=== PATIENT | female | born 1965 | race Caucasian/White ===

== ENCOUNTER → 2017-10-27 | Outpatient (REF) | payer OTHER ==
[2017-10-27 13:26] LABS: BASO # 0.1 10^3/uL (0.0-0.2); BASO % 0.9 % (0.0-1.0); EOS # 0.1 10^3/uL (0.0-0.50); EOS % 0.5 % (0.0-3.0); HEMATOCRIT 40.4 % (36.0-47.0); HEMOGLOBIN 13.3 g/dl (12.0-15.5); IMMATURE GRANULOCYTE % 0.8 % (0-3.0); LYMPH # 2.2 10^3/uL (1.5-4.5); LYMPH % 22.9 % (24.0-44.0); MEAN CORPUSCULAR HEMOGLOBIN 31.4 pg (27.0-33.0); MEAN CORPUSCULAR HGB CONC 32.9 g/dl (32.0-36.5); MEAN CORPUSCULAR VOLUME 95.5 fl (80.0-96.0); MONO # 0.7 10^3/uL (0.0-0.8); MONO % 6.7 % (0.0-5.0); NEUTROPHILS # 6.7 10^3/uL (1.8-7.7); NEUTROPHILS % 68.2 % (36.0-66.0); PLATELET COUNT, AUTOMATED 280 10^3/uL (150-450); RED BLOOD COUNT 4.23 10^6/uL (4.00-5.40); RED CELL DISTRIBUTION WIDTH 13.2 % (11.5-14.5); WHITE BLOOD COUNT 9.8 10^3/uL (4.0-10.0)
[2017-10-27 13:59] LABS: ALBUMIN 4.1 GM/DL (3.2-5.2); ALBUMIN/GLOBULIN RATIO 1.11 (1.00-1.93); ALKALINE PHOSPHATASE 74 U/L (45-117); ALT/SGPT 30 U/L (12-78); ANION GAP 10 MEQ/L (8-16); AST/SGOT 13 U/L (7-37); BILIRUBIN,TOTAL 0.2 MG/DL (0.2-1.0); BLOOD UREA NITROGEN 12 MG/DL (7-18); CALCIUM LEVEL 9.6 MG/DL (8.5-10.1); CARBON DIOXIDE LEVEL 27 MEQ/L (21-32); CHLORIDE LEVEL 104 MEQ/L (98-107); CHOLESTEROL LEVEL 262 MG/DL (<200); CHOLESTEROL RISK RATIO 5.137 (<5); CREATININE FOR GFR 1.29 MG/DL (0.55-1.30); FREE T4 1.03 NG/DL (0.76-1.46); GLUCOSE, FASTING 111 MG/DL (70-100); HDL CHOLESTEROL 51 MG/DL (>40); LDL CHOLESTEROL 140.2 MG/DL (<100); NON-HDL-C 211 MG/DL; POTASSIUM SERUM 4.2 MEQ/L (3.5-5.1); SODIUM LEVEL 141 MEQ/L (136-145); TOTAL PROTEIN 7.8 GM/DL (6.4-8.2); TRIGLYCERIDES LEVEL 354 MG/DL (<150); VITAMIN B12 LEVEL 422 PG/ML (247-911)
[2017-10-27 14:59] LABS: ESTIMATED AVERAGE GLUCOSE 169 MG/DL (60-110); HEMOGLOBIN A1c 7.5 %
== END ==
LOC: M SFHCPLAZ 12:06
DX: E78.00 Pure hypercholesterolemia, unspecified (principal); I10 Essential (primary) hypertension; E03.9 Hypothyroidism, unspecified; G62.9 Polyneuropathy, unspecified; E11.9 Type 2 diabetes mellitus without complications

== ENCOUNTER 2017-12-27 21:17 | Emergency (ER) | payer OTHER | END 2017-12-27 23:40 | disposition home or self-care (01) | LOC: M ED 21:17 | DX: F41.8 Other specified anxiety disorders (principal); E11.9 Type 2 diabetes mellitus without complications; I10 Essential (primary) hypertension; K21.9 Gastro-esophageal reflux disease without esophagitis; F17.210 Nicotine dependence, cigarettes, uncomplicated | CPT/HCPCS: 99284 ==

== ENCOUNTER → 2018-05-04 | Outpatient (REF) | payer OTHER ==
[2018-05-04 19:04] LABS: BASO # 0.1 10^3/uL (0.0-0.2); BASO % 1.4 % (0.0-1.0); EOS # 0.3 10^3/uL (0.0-0.50); EOS % 3.3 % (0.0-3.0); HEMATOCRIT 39.8 % (36.0-47.0); HEMOGLOBIN 13.2 g/dl (12.0-15.5); LYMPH # 2.3 10^3/uL (1.5-4.5); LYMPH % 26.1 % (24.0-44.0); MEAN CORPUSCULAR HEMOGLOBIN 30.7 pg (27.0-33.0); MEAN CORPUSCULAR HGB CONC 33.2 g/dl (32.0-36.5); MEAN CORPUSCULAR VOLUME 92.6 fl (80.0-96.0); MONO # 0.4 10^3/uL (0.0-0.8); NEUTROPHILS # 5.6 10^3/uL (1.8-7.7); NEUTROPHILS % 63.4 % (36.0-66.0); PLATELET COUNT, AUTOMATED 352 10^3/uL (150-450); WHITE BLOOD COUNT 8.9 10^3/uL (4.0-10.0)
[2018-05-04 19:22] LABS: HEMOGLOBIN A1c 8.7 %
[2018-05-04 19:24] LABS: APPEARANCE, URINE CLEAR (CLEAR); BACTERIA, URINE AUTO NEGATIVE (NEGATIVE); BILIRUBIN, URINE AUTO NEGATIVE (NEGATIVE); BLOOD, URINE BLOOD 2+ (NEGATIVE); COLOR, URINE STRAW (YELLOW); GLUCOSE, URINE (UA) AUTO NEGATIVE (NEGATIVE); KETONE, URINE AUTO NEGATIVE (NEGATIVE); LEUKOCYTE ESTERASE, URINE AUTO 3+ (NEGATIVE); MUCUS, URINE SMALL (NEGATIVE); NITRITE, URINE AUTO NEGATIVE (NEGATIVE); PROTEIN, URINE AUTO NEGATIVE (NEGATIVE); RBC, URINE AUTO 6 /HPF (0-3); SPECIFIC GRAVITY URINE AUTO 1.004 (1.002-1.035); SQUAMOUS EPITHELIAL CELL UR AU 0 /HPF (0-6); UROBILINOGEN, URINE AUTO 0.2 mg/dL (0.0-2.0); WBC, URINE AUTO 70 /HPF (0-3)
[2018-05-04 19:26] LABS: MALB URINE SIEMENS 46.5 MG/L; MAU/CREAT RATIO 202.1 MCG/MG (0.0-30.0)
[2018-05-04 19:38] LABS: ALT/SGPT 73 U/L (12-78); BLOOD UREA NITROGEN 12 MG/DL (7-18); CALCIUM LEVEL 9.3 MG/DL (8.5-10.1); CARBON DIOXIDE LEVEL 28 MEQ/L (21-32); CHLORIDE LEVEL 102 MEQ/L (98-107); CREATININE FOR GFR 1.46 MG/DL (0.55-1.30); GLOMERULAR FILTRATION RATE 39.7 (>51); GLUCOSE, FASTING 103 MG/DL (70-100); POTASSIUM SERUM 4.1 MEQ/L (3.5-5.1); SODIUM LEVEL 138 MEQ/L (136-145)
[2018-05-04 19:39] LABS: ALBUMIN 4.3 GM/DL (3.2-5.2); BILIRUBIN,TOTAL 0.3 MG/DL (0.2-1.0); CHOLESTEROL LEVEL 345 MG/DL (<200); CHOLESTEROL RISK RATIO 5.073 (<5); FREE T4 0.18 NG/DL (0.76-1.46); HDL CHOLESTEROL 68 MG/DL (>40); LDL CHOLESTEROL 229 MG/DL (<100); NON-HDL-C 277 MG/DL; TRIGLYCERIDES LEVEL 240 MG/DL (<150)
[2018-05-06 12:06] LABS: HEPATITIS B SURFACE ANTIBODY NEGATIVE (POSITIVE)
[2018-05-06 12:17] LABS: HEPATITIS B SURFACE ANTIGEN NEGATIVE (NEGATIVE)
[2018-05-06 12:45] LABS: HEPATITIS C VIRUS ABY INDEX < 0.0 INDEX (<0.8)
== END ==
LOC: M SFHCPLAZ 15:00
PROVIDERS: ATTEND Physician Assistant Medical
DX: E78.00 Pure hypercholesterolemia, unspecified (principal); I10 Essential (primary) hypertension; E11.9 Type 2 diabetes mellitus without complications; E03.9 Hypothyroidism, unspecified; Z11.59 Encounter for screening for other viral diseases

== ENCOUNTER → 2018-06-10 | Outpatient (REF) | payer OTHER ==
[2018-06-10 17:51] LABS: ALBUMIN 4.8 GM/DL (3.2-5.2); BILIRUBIN,TOTAL 0.4 MG/DL (0.2-1.0); CALCIUM LEVEL 9.5 MG/DL (8.5-10.1); CHOLESTEROL RISK RATIO 3.641 (<5); CREATININE FOR GFR 1.36 MG/DL (0.55-1.30); FREE T4 1.31 NG/DL (0.76-1.46); GLOMERULAR FILTRATION RATE 43.1 (>51); POTASSIUM SERUM 4.6 MEQ/L (3.5-5.1); THYROID STIMULATING HORMONE 7.82 uIU/ML (0.358-3.740); TOTAL PROTEIN 8.7 GM/DL (6.4-8.2)
[2018-06-10 18:08] LABS: HEMOGLOBIN A1c 7.6 %
== END ==
LOC: M SFHCPLAZ 14:47
PROVIDERS: ATTEND Physician Assistant Medical
DX: R94.5 Abnormal results of liver function studies (principal); E03.9 Hypothyroidism, unspecified; E11.9 Type 2 diabetes mellitus without complications

== ENCOUNTER → 2018-06-20 | Outpatient (CLI) | payer OTHER ==
--- NOTE | 2018-06-21 13:30 | REP ---
Clinical: Elevated liver function tests. Technique: Real time sanders scale ultrasound examination using curved array transducer. Findings: Liver demonstrates diffuse increased echogenicity with decreased through transmission suggesting fatty infiltration. Areas of focal fatty sparing noted around the gallbladder fossa and portal vein. No focal hepatic lesion identified. The gallbladder is normal and without gallstones, wall thickening, or pericholecystic fluid. No biliary ductal dilatation is appreciated and the common bile duct measures 5.0 mm diameter. Visualized pancreas is unremarkable. Kidney measures 9.7 x 5.6 x 3.6 cm and demonstrates grade IV hydroureteronephrosis which can be followed to the mid ureter. The bladder is collapsed. Visualized portions of the aorta are normal. No ascites. Impression: 1. Hepatic steatosis without focal hepatic lesion identified. 2. Severe right hydroureteronephrosis. Electronically Signed by Gigi Gaviria MD 06/21/2018 01:21 P
== END ==
LOC: M RAD 09:19
PROVIDERS: ATTEND Physician Assistant Medical
DX: K76.0 Fatty (change of) liver, not elsewhere classified (principal); N13.30 Unspecified hydronephrosis

== ENCOUNTER → 2018-07-04 | Outpatient (REF) | payer OTHER ==
[2018-07-04 12:31] LABS: ALBUMIN 4.1 GM/DL (3.2-5.2); BILIRUBIN,TOTAL 0.3 MG/DL (0.2-1.0); CREATININE FOR GFR 1.27 MG/DL (0.55-1.30); GLOMERULAR FILTRATION RATE 46.7 (>51); POTASSIUM SERUM 4.8 MEQ/L (3.5-5.1); TOTAL PROTEIN 7.3 GM/DL (6.4-8.2)
== END ==
LOC: M SFHCPLAZ 09:42
PROVIDERS: ATTEND Physician Assistant Medical
DX: N13.9 Obstructive and reflux uropathy, unspecified (principal)

== ENCOUNTER → 2018-07-08 | Outpatient (REF) | payer OTHER ==
[2018-07-08 13:57] LABS: AMORPHOUS SEDIMENT SMALL (NEGATIVE); APPEARANCE, URINE HAZY (CLEAR); BACTERIA, URINE AUTO NEGATIVE (NEGATIVE); BILIRUBIN, URINE AUTO NEGATIVE (NEGATIVE); BLOOD, URINE BLOOD 2+ (NEGATIVE); COLOR, URINE STRAW (YELLOW); GLUCOSE, URINE (UA) AUTO NEGATIVE (NEGATIVE); KETONE, URINE AUTO NEGATIVE (NEGATIVE); LEUKOCYTE ESTERASE, URINE AUTO 3+ (NEGATIVE); MUCUS, URINE SMALL (NEGATIVE); NITRITE, URINE AUTO NEGATIVE (NEGATIVE); PROTEIN, URINE AUTO NEGATIVE (NEGATIVE); RBC, URINE AUTO 4 /HPF (0-3); SPECIFIC GRAVITY URINE AUTO 1.002 (1.002-1.035); SQUAMOUS EPITHELIAL CELL UR AU 1 /HPF (0-6); UROBILINOGEN, URINE AUTO 0.2 mg/dL (0.0-2.0); WBC, URINE AUTO 41 /HPF (0-3)
== END ==
LOC: M SMT 13:08
PROVIDERS: ATTEND Nurse Practitioner Family
DX: N13.30 Unspecified hydronephrosis (principal)

== ENCOUNTER → 2018-07-21 | Outpatient (CLI) | payer OTHER ==
[~2018-07-21] MED LIST: ISOVUE-370 76% 100ML VIAL (Q9967) As Ordered ONE
--- NOTE | 2018-07-22 03:49 | REP ---
Clinical: Hydroureternephrosis. Technique: Axial precontrast, contrast enhanced, and delayed images of the abdomen and pelvis using 100 ml Isovue 370 intravenous contrast material with coronal and sagittal re-formations as well as CT urogram. Comparison: None. Findings: The right kidney demonstrates chronic atrophy and presumed chronic hydroureteronephrosis secondary to a and 9 mm distal ureteral calculus (images [id number]). Associated asymmetric nephrogram along with the lack of contrast in the right collecting system suggests significantly decreased right renal function. The left kidney/ureter appears normal. Liver, spleen, pancreas, gallbladder, bilateral adrenal glands are normal in all phases of enhancement. The enteric system is without obstruction or acute inflammatory process. Normal terminal ileum and appendix identified in the right lower quadrant. 1 cm fat containing periumbilical hernia identified. Pelvis demonstrates essentially normal bladder and evidence of prior hysterectomy. No ascites. No free air. No adenopathy. Abdominal aorta without aneurysm or dissection. Impression: 1. Chronic-appearing obstructive uropathy involving the right kidney including atrophic appearance to the right kidney with marked hydroureteronephrosis secondary to a 9 mm distal ureteral calculus. Left kidney/ureter and bladder appear normal. Electronically Signed by Gigi Gaviria MD 07/22/2018 03:41 A
== END ==
LOC: M RAD 14:51
PROVIDERS: ATTEND Nurse Practitioner Family
DX: N13.30 Unspecified hydronephrosis (principal); N21.1 Calculus in urethra
CPT/HCPCS: 74178; Q9967

== ENCOUNTER → 2018-08-17 | Outpatient (REF) | payer OTHER ==
[~2018-08-17] MED LIST changes: +GABA-1171 PO; -ISOVUE-370 76% 100ML VIAL (Q9967) As Ordered ONE; +LEVO112T2 PO; +LISI10TA4 PO; +METF10004 PO; +TRAZ-252 PO; +VENL75CA47 PO; +VENTAER INH
[2018-08-17 16:01] LABS: APPEARANCE, URINE CLOUDY (CLEAR); BACTERIA, URINE AUTO 1+ (NEGATIVE); BILIRUBIN, URINE AUTO NEGATIVE (NEGATIVE); BLOOD, URINE BLOOD 3+ (NEGATIVE); COLOR, URINE YELLOW (YELLOW); GLUCOSE, URINE (UA) AUTO NEGATIVE (NEGATIVE); KETONE, URINE AUTO NEGATIVE (NEGATIVE); LEUKOCYTE ESTERASE, URINE AUTO 3+ (NEGATIVE); MUCUS, URINE SMALL (NEGATIVE); NITRITE, URINE AUTO NEGATIVE (NEGATIVE); PROTEIN, URINE AUTO 1+ mg/dL (NEGATIVE); RBC, URINE AUTO 28 /HPF (0-3); SPECIFIC GRAVITY URINE AUTO 1.013 (1.002-1.035); SQUAMOUS EPITHELIAL CELL UR AU 1 /HPF (0-6); UROBILINOGEN, URINE AUTO 0.2 mg/dL (0.0-2.0); WBC, URINE AUTO TNTC /HPF (0-3)
[2018-08-17 16:04] LABS: BASO # 0.1 10^3/uL (0.0-0.2); BASO % 0.7 % (0.0-1.0); EOS % 0.4 % (0.0-3.0); HEMATOCRIT 41.6 % (36.0-47.0); HEMOGLOBIN 13.8 g/dl (12.0-15.5); LYMPH # 2.3 10^3/uL (1.5-4.5); LYMPH % 23.5 % (24.0-44.0); MEAN CORPUSCULAR HEMOGLOBIN 30.7 pg (27.0-33.0); MEAN CORPUSCULAR HGB CONC 33.2 g/dl (32.0-36.5); MEAN CORPUSCULAR VOLUME 92.7 fl (80.0-96.0); MONO # 0.6 10^3/uL (0.0-0.8); MONO % 6.6 % (0.0-5.0); NEUTROPHILS # 6.6 10^3/uL (1.8-7.7); NEUTROPHILS % 68.2 % (36.0-66.0); PLATELET COUNT, AUTOMATED 328 10^3/uL (150-450); RED BLOOD COUNT 4.49 10^6/uL (4.00-5.40); WHITE BLOOD COUNT 9.6 10^3/uL (4.0-10.0)
[2018-08-17 16:09] LABS: INR 0.89; PROTHROMBIN TIME 12.1 SECONDS (12.1-14.4)
[2018-08-17 16:10] LABS: PARTIAL THROMBOPLASTIN TIME 28.1 SECONDS (25.4-37.6)
[2018-08-17 16:34] LABS: ALBUMIN 4.3 GM/DL (3.2-5.2); ALT/SGPT 23 U/L (12-78); BILIRUBIN,TOTAL 0.4 MG/DL (0.2-1.0); BLOOD UREA NITROGEN 20 MG/DL (7-18); CALCIUM LEVEL 10.1 MG/DL (8.5-10.1); CARBON DIOXIDE LEVEL 23 MEQ/L (21-32); CHLORIDE LEVEL 103 MEQ/L (98-107); CPK CREATINE PHOSPHOKINASE 205 U/L (26-192); CREATININE FOR GFR 1.11 MG/DL (0.55-1.30); FREE T4 1.29 NG/DL (0.76-1.46); GLOMERULAR FILTRATION RATE 54.5 (>51); GLUCOSE, FASTING 109 MG/DL (70-100); MB/CK RELATIVE INDEX 1.51 (< OR =4); NT-PRO BNP 40 PG/ML (<125); POTASSIUM SERUM 4.4 MEQ/L (3.5-5.1); SODIUM LEVEL 137 MEQ/L (136-145); THYROID STIMULATING HORMONE 0.275 uIU/ML (0.358-3.740); TOTAL PROTEIN 8.2 GM/DL (6.4-8.2); TROPONIN I < 0.02 NG/ML (< 0.10)
[2018-08-17 16:35] LABS: TOTAL 25(OH) VITAMIN D 20.3 NG/ML (30.0-100.0)
== END ==
LOC: M SFHCPLAZ 13:58
PROVIDERS: ATTEND Physician Assistant Medical
DX: R07.9 Chest pain, unspecified (principal); I10 Essential (primary) hypertension; E03.9 Hypothyroidism, unspecified

== ENCOUNTER 2018-09-06 15:16 | Observation (INO) | payer OTHER ==
[~2018-09-06] VITALS: Ht 152.4 cm; Wt 84.6 kg
[2018-09-06] MEDS ORDERED: HYDR-643 (15:37)
--- NOTE | 2018-09-06 16:44 | REP ---
Clinical: Chest pain and tightness with shortness of breath . Comparison: 02/10/2006 . Technique: PA and lateral. Findings: The mediastinum and cardiac silhouette are normal. The lung mix are clear and without acute consolidation, effusion, or pneumothorax. The skeletal structures are intact and normal. Impression: 1. No acute cardiopulmonary process. Electronically Signed by Gigi Gaviria MD 09/06/2018 04:35 P
[2018-09-06] MEDS: NS 1,000 ML IV SCH ×2 (17:00→23:17)
[2018-09-06] MEDS ORDERED: IPRATROPIUM 0.5MG/ALBUTEROL 2.5MG INH SOL UD 3ML (DUONEB)(J7620) NEB ONE (17:15)
[2018-09-06 17:26] LABS: BASO # 0.1 10^3/uL (0.0-0.2); BASO % 0.7 % (0.0-1.0); EOS # 0.1 10^3/uL (0.0-0.50); EOS % 1.6 % (0.0-3.0); HEMOGLOBIN 12.5 g/dl (12.0-15.5); LYMPH # 1.4 10^3/uL (1.5-4.5); LYMPH % 16.6 % (24.0-44.0); MEAN CORPUSCULAR HEMOGLOBIN 29.8 pg (27.0-33.0); MEAN CORPUSCULAR HGB CONC 32.9 g/dl (32.0-36.5); MEAN CORPUSCULAR VOLUME 90.5 fl (80.0-96.0); MONO # 0.5 10^3/uL (0.0-0.8); MONO % 5.9 % (0.0-5.0); NEUTROPHILS # 6.5 10^3/uL (1.8-7.7); NEUTROPHILS % 74.6 % (36.0-66.0); PLATELET COUNT, AUTOMATED 301 10^3/uL (150-450); WHITE BLOOD COUNT 8.7 10^3/uL (4.0-10.0)
[2018-09-06 17:33] LABS: ALBUMIN 3.8 GM/DL (3.2-5.2); ALT/SGPT 25 U/L (12-78); BILIRUBIN,DIRECT < 0.1 MG/DL (0.0-0.2); BILIRUBIN,TOTAL 0.2 MG/DL (0.2-1.0); BLOOD UREA NITROGEN 21 MG/DL (7-18); CALCIUM LEVEL 9.7 MG/DL (8.5-10.1); CARBON DIOXIDE LEVEL 23 MEQ/L (21-32); CHLORIDE LEVEL 110 MEQ/L (98-107); CPK CREATINE PHOSPHOKINASE 210 U/L (26-192); FREE T4 1.35 NG/DL (0.76-1.46); GLOMERULAR FILTRATION RATE 55.1 (>51); GLUCOSE, FASTING 131 MG/DL (70-100); LIPASE 654 U/L (73-393); MB/CK RELATIVE INDEX 1.43 (< OR =4); POTASSIUM SERUM 4.5 MEQ/L (3.5-5.1); SODIUM LEVEL 141 MEQ/L (136-145); THYROID STIMULATING HORMONE 0.159 uIU/ML (0.358-3.740); TOTAL PROTEIN 7.5 GM/DL (6.4-8.2); TROPONIN I < 0.02 NG/ML (< 0.10)
--- NOTE | 2018-09-06 20:12 | REP ---
Clinical: Flank pain. Elevated lipase levels. Technique: Axial noncontrast images from the lung bases to the pubic symphysis with coronal and sagittal re-formations. Comparison: 07/21/2018. Findings: Chronic moderate obstructive uropathy or involving the right kidney and ureter secondary to a 9 mm calculus in the distal right ureter (images [id number]) remains essentially unchanged. The right kidney demonstrates significant cortical thinning and mild perinephric stranding. Left kidney/ureter appears normal. No further intrarenal or obstructing ureteral calculi noted. Bladder is unremarkable. Liver, spleen, pancreas, gallbladder, and bilateral adrenal glands are normal for noncontrast evaluation. Enteric system is without obstruction or acute inflammatory process. Normal terminal ileum and appendix identified in the right lower quadrant. Scattered colonic and sigmoid diverticula noted without acute diverticulitis. Pelvis demonstrates normal bladder and age-appropriate uterus/adnexa. No pelvic fluid or ascites. No free air. No adenopathy. Small fat containing periumbilical hernia. Musculoskeletal structures intact. Lung bases are clear. Impression: 1. Chronic moderate right-sided obstructive uropathy with a 9 mm calculus again identified in the distal right ureter and significant cortical thinning to the right kidney. Left kidney/ureter appear normal and no further nephroureterolithiasis noted. 2. Scattered colonic diverticula without acute diverticulitis. 3. Small fat containing periumbilical hernia. Electronically Signed by Gigi Gaviria MD 09/06/2018 08:03 P
[2018-09-06] MEDS ORDERED: LevoFLOXacin IV 750 MG in APPROPRIATE DILUENT 1 EA IV ONE (23:00)
[2018-09-06] MEDS ORDERED: NS 1,000 ML IV SCH (23:38)
[2018-09-06] MEDS ORDERED: CVS55SPR (23:42)
[2018-09-06] MEDS ORDERED: SYNT100T PO (23:42)
[2018-09-06] MEDS ORDERED: HYDR-643 PO (23:42)
[2018-09-07] VITALS (10 sets, daily range): BP systolic 102–156; BP diastolic 59–85
[2018-09-07] MEDS ORDERED: ALBUTEROL 90 MCG/ACT 8GM HFA INHALER INH PRN (00:30)
[2018-09-07] MEDS ORDERED: hydrOXYzine 10 MG TAB PO PRN (00:30)
[2018-09-07] MEDS ORDERED: DEXTROSE 50% 50 ML SYRINGE IV PRN (00:30)
[2018-09-07] MEDS ORDERED: GLUCOSE 4 GM CHEW TABLET PO PRN (00:30)
[2018-09-07] MEDS ORDERED: GLUCAGON FOR INJ 1 MG VIAL (J1610) SC PRN (00:30)
--- NOTE | 2018-09-07 00:34 | HPEPDOC ---
[facility] Medical History & Physical Date of Admission Sep 06, 2018 Date of Service: Sep 06, 2018 History and Physical PCP: Katia Keating CHIEF COMPLAINT: My kidneys hurt HISTORY OF PRESENT ILLNESS: Patient is a 53-year-old female who follows with Dr. Urena of urology and has a non-obstructing right ureteral stone. She has been undergoing outpatient evaluation and scheduling to have it treated. She tells me that over the last several days she has had progressively worsening right flank pain associated with chills and sweats at home. She also complains of weakness and some cough. She tells me that her kidneys hurt tenderness in the right side more than the left. She denies any blood in her urine she has not measured her temperature at home.. Otherwise patient denies weight loss, hair loss, headache, visual changes, chest pain, shortness of breath, cough, nausea, vomiting, diarrhea, muscle aches, worsening arthritis, change in mood PAST MEDICAL HISTORY: 1. Degenerative disc disease. 2. Hypertension. 3. Hypothyroidism 4 type 2 diabetes 5 gastroesophageal reflux disease 6. Mood disorder with depression and PTSD 7 CVA 8 tobacco abuse 9 dyslipidemia 10 chronic kidney disease 11 umbilical hernia 12 nephrolithiasis. HOME MEDICATIONS: Please see below. ALLERGIES: Please see below PAST SURGICAL HISTORY: 1. Right arm metal plate implant. 2. .. SOCIAL HISTORY: Lives with: Alone, Employment: Disabled, Tobacco use: Active smoker approximate 40 pack years. ETOH: Denies last drink one month ago, Illic it drug use: Denies, Tattoos done unprofessionally: Denies, CODE STATUS: Full code FAMILY HISTORY:Reviewed and noncontributory REVIEW OF SYSTEMS: 10 systems reviewed and negative other than HPI PHYSICAL EXAMINATION: VITAL SIGNS: Temperature 97.7, pulse 53, respiratory rate 16, blood pressure 142/66, pulse oximetry 98 % on room air. GENERAL: Pleasant strange affect middle-aged obese female sitting in a stretcher does not appear to be in any acute distress sitting up in bed awake alert oriented speaking in complete sentences HEENT: Moist mucous membranes no elevation and CVP, hirsutism CARDIOVASCULAR: S1 S2 regular no additional heart sounds appreciated. RESPIRATORY: Clear to auscultation bilaterally. ABDOMINAL: Bowel sounds present abdomen soft and nontender, there is some right- sided CVA tenderness EXTREMITIES: No clubbing cyanosis or edema NEUROLOGICAL: Spontaneously moves all 4 extremities cranial 2 through 12 grossly intact no gross focal deficits appreciated PSYCHOLOGICAL: Rather strange and flat affect LABORATORY DATA: See below. MICROBIOLOGY: Please see below. IMAGING: Chest x-ray:1. No acute cardiopulmonary process. CT abdomen pelvis:1. Chronic moderate right-sided obstructive uropathy with a 9 mm calculus again identified in the distal right ureter and significant cortical thinning to the right kidney. Left kidney/ureter appear normal and no further nephroureterolithiasis noted. 2. Scattered colonic diverticula without acute diverticulitis. 3. Small fat containing periumbilical hernia. ASSESSMENT & PLAN: This is a 53-year-old female with obstructing right ureteral stone. PROBLEMS: 1. Obstructive uropathy with 9 mm nephrolithiasis on the right: Patient does complain of flank pain subjective fevers. She certainly could have pyelonephr itis although she does not have significant leukocytosis and fever documented here or qualify any acute sofa score. A provider reportedly spoke to Dr. Urena who suggested possible double-J stent placement in the OR as an add-on case 09/07/2018. As such I have admitted the patient to the [facility] kept her nothing by mouth and continued empiric antibiotics started in the emergency room. There is no cultures to guide therapy. I will check blood cultures and provided with gentle IV fluids. Given that she did present with complaints of a cough with some phlegm I will check respiratory PCR panel however my suspicion for preparation respiratory tract infection is much lower 2. Elevated lipase: Likely does not provide a history suggestive of pancreatitis no nausea or vomiting although her flank pain is on the right and could be an atypical presentation, regardless she is nothing by mouth for possible procedure tomorrow she is not requiring any sick pain medication nor does she have CT evidence of suggested either 3. Hypothyroidism: Continue with her Synthroid consider rechecking after her acute medical illness has resolved her TSH is mildly depressed and may benefit from a lower dose move forward 4.Diabetes mellitus: We'll place her on sliding scale and every 6 hour fingersticks. Hold home metformin 5. Tobacco abuse: Cessation counseling provided continue with albuterol as needed 6. Mood disorder: Continue with hydroxyzine and venlafaxine 7. Chronic pain: Continue with gabapentin 8. Hypertension: Hold lisinopril and monitor for now. Procedurally DVT PROPHYLAXIS: Heparin DISPOSITION: [facility] floor to the [facility] Vital Signs Vital Signs Date Time Temp Pulse Resp B/P (MAP) Pulse Ox O2 Delivery O2 Flow Rate FiO2 09/06/18 22:31 53 16 98 Room Air 09/06/18 20:06 142/66 (91) 09/06/18 17:00 97.7 Laboratory Data Labs 24H Laboratory Tests 2 09/06/18 16:42: Immature Granulocyte % (Auto) 0.6, White Blood Count 8.7, Red Blood Count 4.20, Hemoglobin 12.5, Hematocrit 38.0, Mean Corpuscular Volume 90.5, Mean Corpuscular Hemoglobin 29.8, Mean Corpuscular Hemoglobin Concent 32.9, Red Cell Distribution Width 13.5, Platelet Count 301, Neutrophils (%) (Auto) 74.6H, Lymphocytes (%) (Auto) 16.6L, Monocytes (%) (Auto) 5.9H, Eosinophils (%) (Auto) 1.6, Basophils (%) (Auto) 0.7, Neutrophils # (Auto) 6.5, Lymphocytes # (Auto) 1.4L, Monocytes # (Auto) 0.5, Eosinophils # (Auto) 0.1, Basophils # (Auto) 0.1, Nucleated Red Blood Cells % (auto) 0.0, Urine Color YELLOW, Urine Appearance CLOUDYH, Urine pH 5.0, Urine Specific [place] 1.015, Urine Protein NEGATIVE, Urine Glucose (UA) NEGATIVE, Urine Ketones NEGATIVE, Urine Blood 3+H, Urine Nitrite NEGATIVE, Urine Bilirubin NEGATIVE, Urine Urobilinogen 0.2, Urine Leukocyte Esterase 3+H, Urine WBC (Auto) 137H, Urine RBC (Auto) 16H, Urine Hyaline Casts (Auto) 0, Urine Bacteria (Auto) 2+H, Urine Squamous Epithelial Cells 1, Urine Mucus (Auto) SMALL, Urine Sperm (Auto) , Anion Gap 8, Glomerular Filtration Rate 55.1, Calcium Level 9.7, Aspartate Amino Transf (AST/SGOT) 19, Alanine Aminotransferase (ALT/SGPT) 25, Alkaline Phosphatase 67, Total Bilirubin 0.2, Direct Bilirubin < 0.1, Total Creatine Kinase 210H, Creatine Kinase MB 3.0, Crea isreal Kinase MB Relative Index 1.43, Troponin I < 0.02, Total Protein 7.5, Albumin 3.8, Albumin/Globulin Ratio 1.03, Lipase 654H, Thyroid Stimulating Hormone (TSH) 0.159L, Free Thyroxine 1.35 CBC/BMP Laboratory Tests 09/06/18 16:42 Red Blood Count 4.20, Mean Corpuscular Volume 90.5, Mean Corpuscular Hemoglobin 29.8, Mean Corpuscular Hemoglobin Concent 32.9, Red Cell Distribution Width 13.5, Neutrophils (%) (Auto) 74.6 H, Lymphocytes (%) (Auto) 16.6 L, Monocytes (%) (Auto) 5.9 H, Eosinophils (%) (Auto) 1.6, Basophils (%) (Auto) 0.7, Neutrophils # (Auto) 6.5, Lymphocytes # (Auto) 1.4 L, Monocytes # (Auto) 0.5, Eosinophils # (Auto) 0.1, Basophils # (Auto) 0.1 Microbiology Microbiology 09/06/18 Urine Culture, Received Pending Home Medications Scheduled Gabapentin (Gabapentin) 100 Mg Capsule, 200 MG PO TID Levothyroxine Sodium (Synthroid) 100 Mcg Tablet, 100 MCG PO DAILY Lisinopril (Lisinopril) 10 Mg Tablet, 10 MG PO DAILY Metformin HCl (Metformin HCl) 1,000 Mg Tablet, 1,000 MG PO DAILY Triamcinolone Acetonide (Nasal Allergy) 16.9 Ml [place], 1 SPRAY NA DAILY Venlafaxine HCl (Venlafaxine HCl ER) 75 Mg Cap.er.24h, 75 MG PO BID Scheduled PRN Albuterol Sulfate (Ventolin Hfa) 18 Gm Hfa.aer.ad, 2 PUFFS INH QID PRN for SHORTNESS OF BREATH Hydroxyzine HCl (Hydroxyzine HCl) 10 Mg Tablet, 10 MG PO TID PRN for ANXIETY Allergies Coded Allergies: Penicillins (Verified Allergy, Intermediate, RASH, 09/06/18) paroxetine (Verified Allergy, Intermediate, rASH, 09/06/18) A-FIB/CHADSVASC A-FIB History Current/History of A-Fib/PAF?: KEARA Erickson MD Sep 07, 2018 00:34
[2018-09-07] MEDS: VENLAFAXINE **XR** 75MG CAPSULE PO SCH ×3 (01:33→21:48)
[2018-09-07] MEDS: NS 1,000 ML IV SCH ×2 (02:19→14:03)
[2018-09-07] MEDS: HEPARIN SOD (PORCINE) 5000 UNITS/ML VIAL SC SCH ×2 (05:46→18:29)
[2018-09-07] MEDS: LEVOTHYROXINE 100MCG TABLET (0.1MG) PO SCH (05:46)
[2018-09-07] MEDS: HumaLOG INSULIN (NovoLOG) PER UNIT SC SCH ×4 (05:48→18:30)
--- NOTE | 2018-09-07 07:52 | SMCUROLCON ---
Urology Consultation General Date of Consultation 09/07/18 Reason For Consultation This patient is seen for Pyelonephritis, Situational Anxiety. History of Present Illness This is a 53 y/o F w/ PMH significant for DM2, HTN, HL, CVD, hypothyroidism, and nephrolithiasis, who presented to the ER yesterday evening w/ complaints of fevers, chills, and weakness. She notes that she has had a cough for the past few days and this along, w/ her presenting symptoms worsened yesterday. She also has a known 9mm obstructing distal right ureteral stone in and my office has been trying to get her cleared for ureteroscopy w/ laser lithotripsy for over a month now. She is still pending cardiac clearance. She notes having on and off right flank pain but does not feel this is any worse than it has been previously. She denies dysuria. A noncontrast CT A/P obtained in the ER was showed no change in location of the right ureteral stone and still moderate right hydroureteronephrosis w/ thinning of the renal parenchyma. Her UA is concerning for possible infection w/ 137 WBCs/hpf. Past Medical History Medical History see HPI Surgical Hstory right arm surgery, C section Medications Current Medications Current Medications Albuterol Sulfate (Proventil, Ventolin Hfa) 2 puff QID PRN INH SHORTNESS OF BREATH; Start 09/07/18 at 00:30 Dextrose (Dextrose 50%) 25 ml ASDIRECTED PRN IV SEE LABEL COMMENTS; Start 09/07/18 at 00:30 Gabapentin (Neurontin) 200 mg TID PO ; Start 09/07/18 at 09:00 Glucagon (Glucagon) 1 mg ASDIRECTED PRN SC SEE LABEL COMMENTS; Start 09/07/18 at 00:30 Glucose (Glucose) 16 GM ASDIRECTED PRN PO SEE LABEL COMMENTS; Start 09/07/18 at 00:30 Heparin Sodium (Porcine) (Heparin) 5,000 units Q12H SC Last administered on 09/07/18at 05:46; Start 09/07/18 at 06:00 Home Med (Med Rec Complete!) ASDIRECTED XX ; Start 09/06/18 at 23:45; Stop 09/06/18 at 23:45; Status DC Hydroxyzine HCl (Atarax) 10 mg TID PRN PO ANXIETY; Start 09/07/18 at 00:30 Insulin Human Lispro (HumaLOG INSULIN) See Protocol Table Q6H SC ; Start 09/07/18 at 00:00 Levofloxacin 500 mg/IV Miscellaneous Supplies 100 ml @ 100 mls/hr Q48H IV ; Start 09/08/18 at 21:00 Levothyroxine Sodium (Synthroid) 100 mcg DAILY@0600 PO Last administered on 09/07/18at 05:46; Start 09/07/18 at 06:00 Sodium Chloride 1,000 ml @ 75 mls/hr [id number] IV ; Start 09/06/18 at 23:38; Stop 09/07/18 at 00:42; Status DC Sodium Chloride 1,000 ml @ 75 mls/hr [id number] IV Last administered on 09/07/18at 02:19; Start 09/07/18 at 00:30 Sodium Chloride 1,000 ml @ 150 mls/hr Q6H40M IV Last administered on 09/06/18at 17:00; Start 09/06/18 at 16:37; Stop 09/07/18 at 02:55; Status DC Venlafaxine HCl (Effexor Xr) 75 mg BID PO ; Start 09/06/18 at 21:00 Allergies Allergies: Coded Allergies: Penicillins (Verified Allergy, Intermediate, RASH, 09/06/18) paroxetine (Verified Allergy, Intermediate, rASH, 09/06/18) Review of Systems General: Reports: Chills, Fatigue Constitutional: Reports: Fever, Chills, Sweats Pulmonary: Reports: Cough Cardiovascular: Denies Chest Pain, Denies Palpitations Gastrointestinal: Denies: Nausea, Vomiting, Abdominal Pain Genitourinary: Denies: Dysuria, Frequency, Hematuria Musculoskeletal: Reports: Back Pain (right flank pain) Psych: Reports: Mood Normal Physical Examination General Exam: Alert, No Acute Distress Chest Exam: Normal air movement Heart Exam: Rate Normal, Regular Rhythm Abdomen Exam: Soft; No: Tenderness Skin Exam: Nl turgor and temperature Neuro Exam: Normal Speech Psych Exam: Mental status NL, Mood NL Vital Signs/I&O Vital Signs Date Time Temp Pulse Resp B/P (MAP) Pulse Ox O2 Delivery O2 Flow Rate FiO2 09/07/18 06:00 97.0 59 18 123/59 (80) 97 09/07/18 01:55 Room Air I&O- Last 24 Hours up to 6 AM0 09/07/18 06:00 Intake Total 1120 ml Output Total 550 ml Balance 570 ml Laboratory Data 24H Labs Laboratory Tests 2 09/06/18 16:24: 09/06/18 16:42: Immature Granulocyte % (Auto) 0.6, White Blood Count 8.7, Red Blood Count 4.20, Hemoglobin 12.5, Hematocrit 38.0, Mean Corpuscular Volume 90.5, Mean Corpuscular Hemoglobin 29.8, Mean Corpuscular Hemoglobin Concent 32.9, Red Cell Distribution Width 13.5, Platelet Count 301, Neutrophils (%) (Auto) 74.6H, Lymphocytes (%) (Auto) 16.6L, Monocytes (%) (Auto) 5.9H, Eosinophils (%) (Auto) 1.6, Basophils (%) (Auto) 0.7, Neutrophils # (Auto) 6.5, Lymphocytes # (Auto) 1.4L, Monocytes # (Auto) 0.5, Eosinophils # (Auto) 0.1, Basophils # (Auto) 0.1, Nucleated Red Blood Cells % (auto) 0.0, Urine Color YELLOW, Urine Appearance CLOUDYH, Urine pH 5.0, Urine Specific [place] 1.015, Urine Protein NEGATIVE, Urine Glucose (UA) NEGATIVE, Urine Ketones NEGATIVE, Urine Blood 3+H, Urine Nitrite NEGATIVE, Urine Bilirubin NEGATIVE, Urine Urobilinogen 0.2, Urine Leukocyte Esterase 3+H, Urine WBC (Auto) 137H, Urine RBC (Auto) 16H, Urine Hyaline Casts (Auto) 0, Urine Bacteria (Auto) 2+H, Urine Squamous Epithelial Cells 1, Urine Mucus (Auto) SMALL, Urine Sperm (Auto) , Anion Gap 8, Glomerular Filtration Rate 55.1, Calcium Level 9.7, Aspartate Amino Transf (AST/SGOT) 19, Alanine Aminotran sferase (ALT/SGPT) 25, Alkaline Phosphatase 67, Total Bilirubin 0.2, Direct Bilirubin < 0.1, Total Creatine Kinase 210H, Creatine Kinase MB 3.0, Creatine Kinase MB Relative Index 1.43, Troponin I < 0.02, Total Protein 7.5, Albumin 3.8, Albumin/Globulin Ratio 1.03, Lipase 654H, Thyroid Stimulating Hormone (TSH) 0.159L, Free Thyroxine 1.35 09/07/18 02:17: Bedside Glucose (Misc Panel) 104 09/07/18 05:39: Bedside Glucose (Misc Panel) 95 CBC/BMP Laboratory Tests 09/06/18 16:42 Red Blood Count 4.20, Mean Corpuscular Volume 90.5, Mean Corpuscular Hemoglobin 29.8, Mean Corpuscular Hemoglobin Concent 32.9, Red Cell Distribution Width 13.5, Neutrophils (%) (Auto) 74.6 H, Lymphocytes (%) (Auto) 16.6 L, Monocytes (%) (Auto) 5.9 H, Eosinophils (%) (Auto) 1.6, Basophils (%) (Auto) 0.7, Neutrophils # (Auto) 6.5, Lymphocytes # (Auto) 1.4 L, Monocytes # (Auto) 0.5, Eosinophils # (Auto) 0.1, Basophils # (Auto) 0.1 Microbiology Microbiology 09/07/18 Blood Culture, Received Pending 09/07/18 Blood Culture, Received Pending 09/07/18 Respiratory Virus Panel (PCR) (DB) - Final, Complete Human Rhinovirus/Enterovirus 09/06/18 Urine Culture, Received Pending Assessment This is a 53 y/o F admitted w/ fevers, chills, and weakness, likely 2/2 r espiratory tract infection. She also has a known 9mm obstructing distal right ureteral stone and a large number of WBCs seen on UA raising concern for UTI. Given this, I recommended that we take her to the OR today for cystoscopy and right ureteral stent placement. Ureteroscopic removal of the stone would need to be done at a later date once we confirm a negative urine culture and she has completed her cardiac clearance. After a discussion of the risks and benefits of the procedure, informed consent was signed. Plan - informed consent signed for cystoscopy, right ureteral stent placement - empiric antibiotics per primary team - NPO until surgery MILADY LOPEZ MD Sep 07, 2018 07:52
[2018-09-07] MEDS ORDERED: PROPOFOL 200 MG/20 ML VIAL As Ordered ONE ×2 (09:41→12:00)
[2018-09-07] MEDS ORDERED: ONDANSETRON 4MG/2ML VIAL (J2405) As Ordered ONE (09:42)
[2018-09-07] MEDS ORDERED: dexameTHASONE 4 MG/ML 1ML VIAL (J1100) As Ordered ONE (09:42)
[2018-09-07] MEDS ORDERED: LIDOCAINE 2% INJ 100 MG/5 ML SDV (FOR ANES.) As Ordered ONE (09:42)
[2018-09-07] MEDS ORDERED: fentaNYL 100 MCG/2 ML INJECTION (J3010) As Ordered ONE (09:43)
[2018-09-07] MEDS ORDERED: MIDAZOLAM INJ 2 MG/2 ML VIAL (J2250) As Ordered ONE (09:43)
[2018-09-07] MEDS ORDERED: CONRAY-60 60% 50ML VIAL (Q9961) As Ordered ONE (11:22)
[2018-09-07] MEDS ORDERED: IPRATROPIUM 0.5MG/ALBUTEROL 2.5MG INH SOL UD 3ML (DUONEB)(J7620) As Ordered ONE (11:29)
[2018-09-07] MEDS ORDERED: IPRATROPIUM 0.5MG/ALBUTEROL 2.5MG INH SOL UD 3ML (DUONEB)(J7620) INH ONE (11:45)
[2018-09-07] MEDS ORDERED: LIDOCAINE 2% JELLY 6 ML SYRINGE As Ordered ONE (11:58)
[2018-09-07] MEDS ORDERED: KETAMINE HCL 200 MG/20 ML VIAL As Ordered ONE (12:00)
[2018-09-07] MEDS ORDERED: LIDOCAINE 2% 5ML JELLY UROJET As Ordered ONE (12:07)
--- NOTE | 2018-09-07 12:46 | REP ---
Antegrade pyelogram: A series of three a drop of fluoroscopic views is performed during right ureteral stent placement: The final film demonstrates the proximal and distal pigtails are in satisfactory positions. Fluoroscopic exposure time is 27 seconds. Fluoroscopic images are performed last image hold technology and require no additional radiation. Electronically Signed by Negrito Ogden MD 09/07/2018 12:38 P
[2018-09-07] MEDS ORDERED: oxyCODONE 5MG TAB As Ordered ONE (13:03)
[2018-09-07] MEDS ORDERED: fentaNYL 100 MCG/2 ML INJECTION (J3010) IV PRN (13:15)
[2018-09-07] MEDS ORDERED: METOCLOPRAMIDE INJ 10MG/2ML VIAL (J2765) IV PRN (13:15)
[2018-09-07] MEDS ORDERED: LR 1,000 ML IV SCH (13:15)
[2018-09-07] MEDS ORDERED: oxyCODONE 5MG TAB PO PRN (13:15)
[2018-09-07] MEDS ORDERED: PROMETHAZINE INJ 25 MG/ML VIAL (J2550) IV PRN (13:15)
--- NOTE | 2018-09-07 13:30 | RO ---
DATE OF PROCEDURE: 09/07/2018 PREPROCEDURE DIAGNOSIS: Obstructing right ureteral stone. POSTPROCEDURE DIAGNOSIS: Obstructing right ureteral stone. PROCEDURE: Cystoscopy, right retrograde pyelogram with intraoperative interpretation of images, right ureteral stent placement. SURGEON: Isak Urena MD FOOD [employer]ING RAMPMAN: None. ANESTHESIA: Monitored anesthesia care (MAC). OPERATIVE INDICATION: This is a 53-year-old female with an obstructing 9 mm distal right ureteral stone as well as concern for urinary tract infection. She was brought to the operating room today for the above listed procedure. DESCRIPTION OF PROCEDURE: The patient was brought to the operating room where MAC anesthesia was administered. Prophylactic antibiotics were infused. She was then placed in dorsal lithotomy position, prepped and draped in the usual sterile fashion. A rigid cystoscope was inserted through the meatus and advanced to the bladder. A Guidewire was advanced up the right collecting system. At this point, an open ended ureteral catheter was advanced up the right collecting system and the wire was removed. I then aspirated approximately 40 mL of blood tinged purulent urine from her right renal pelvis. This was sent for culture. I then advanced the wire back up the right collecting system and removed the open ended ureteral catheter. Next, a #6 B[place] by 22-32 cm JJ ureteral stent was advanced over the wire into the right collecting system. The wire was then removed and there were adequate curls of the stent in the right renal pelvis and the in the bladder. Of note, after the stent was placed there continued to be drainage of purulent material from the right kidney. At this point, the cystoscope was removed and an 18 [place] Stringer catheter was inserted into the bladder. The balloon was filled with 10 mL of sterile water. The catheter was set to gravity drainage and this marked the conclusion of the procedure. The patient was then taken out of the dorsal lithotomy position, awakened from anesthesia and transferred to the recovery room in stable condition. ESTIMATED BLOOD LOSS: 6 mL. COMPLICATIONS: None. SPECIMENS: Urine from right kidney for culture. PLAN: The patient will be monitored in the hospital for her respiratory tract infection as well as for signs of worsening urinary tract infection. Her catheter can be removed tomorrow assuming she is improving clinically. [facility]
[2018-09-07] MEDS: GABAPENTIN 100 MG CAP PO SCH ×3 (13:48→21:48)
--- NOTE | 2018-09-07 16:00 | IPN ---
DATE: 09/07/2018 Patient was admitted by hospitalist with complaint of general illness. She had a cough. Respiratory panel identified human rhinovirus / Enterovirus which fits with her upper respiratory symptoms as well as nonproductive cough. Chest x-ray did not show an acute cardiopulmonary process and her saturations have been satisfactory. She was admitted, also found to have flank pain so urology consulted because imaging did demonstrate some obstructive uropathy, moderate, with a 9 mm calculus in the distal right ureter. She underwent a procedure today with Dr. Urena and some purulent material was obtained and new cultures were done. Currently she is on ciprofloxacin. PHYSICAL EXAMINATION: She is alert, pleasant and oriented. Right flank pain is less than she reported yesterday. Lungs: Clear to auscultation and percussion. Heart: Regular rate and rhythm without murmurs, gallops or rubs. She has mild tenderness right mid abdomen to palpation. White count is 6700 and her chemistry show creatinine of 1.10, BUN 21, lipase was 654. ASSESSMENT Obstructive uropathy with some evidence of pyelonephritis, enterovirus, respiratory infection. PLAN: Continue Levaquin at current dose. At this point her IV fluids have been stopped since she is taking by mouth (p.o.) intake adequately. Probable discharge tomorrow if she continues to show evidence of improvement, although her antibiotic regimen may need to be adjusted once the bacterial cultures are available from today's surgical procedure.
[2018-09-07] MEDS: PERCOCET 5MG/325MG TAB PO PRN (18:31)
--- NOTE | 2018-09-07 21:26 | ECGEPIP ---
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
[2018-09-08] MEDS: NS 1,000 ML IV SCH ×2 (00:08→12:40)
[2018-09-08] MEDS: PERCOCET 5MG/325MG TAB PO PRN ×3 (00:14→12:39)
[2018-09-08 02:00] VITALS: BP 118/58
[2018-09-08 06:00] VITALS: BP 102/71
[2018-09-08] MEDS: HEPARIN SOD (PORCINE) 5000 UNITS/ML VIAL SC SCH (06:27)
[2018-09-08] MEDS: HumaLOG INSULIN (NovoLOG) PER UNIT SC SCH ×3 (06:27→13:45)
[2018-09-08] MEDS: LEVOTHYROXINE 100MCG TABLET (0.1MG) PO SCH (06:27)
[2018-09-08 06:55] LABS: HEMOGLOBIN 11.9 g/dl (12.0-15.5); MEAN CORPUSCULAR HEMOGLOBIN 30.4 pg (27.0-33.0); MEAN CORPUSCULAR HGB CONC 33.1 g/dl (32.0-36.5); MEAN CORPUSCULAR VOLUME 92.1 fl (80.0-96.0); PLATELET COUNT, AUTOMATED 289 10^3/uL (150-450); RED BLOOD COUNT 3.91 10^6/uL (4.00-5.40); WHITE BLOOD COUNT 18.5 10^3/uL (4.0-10.0)
[2018-09-08 07:20] LABS: CALCIUM LEVEL 8.7 MG/DL (8.5-10.1); CREATININE FOR GFR 1.14 MG/DL (0.55-1.30); GLOMERULAR FILTRATION RATE 52.9 (>51); POTASSIUM SERUM 4.3 MEQ/L (3.5-5.1)
[2018-09-08 08:38] VITALS: BP 135/83
[2018-09-08 10:00] VITALS: BP 110/73
[2018-09-08] MEDS ORDERED: KETOROLAC 30 MG/ML VIAL (J1885) IV ONE (10:00)
[2018-09-08] MEDS: VENLAFAXINE **XR** 75MG CAPSULE PO SCH (10:21)
[2018-09-08] MEDS: GABAPENTIN 100 MG CAP PO SCH ×2 (10:21→16:25)
[2018-09-08 13:52] VITALS: BP 108/80
[2018-09-08] MEDS ORDERED: LEVO500T3 PO (14:09)
--- NOTE | 2018-09-08 14:36 | IPNPDOC ---
Subjective Review oF Systems Chief Complaint The patient is a 53-year-old female admitted with a reason for visit of Pyelonephritis, Situational Anxiety. Events since Last Encounter No acute events o/n. The patient notes having pain in her right flank since surgery. She notes it is tolerable. She denies fevers or chills. No nausea or vomiting. Objective Physical Examination General Exam: Alert, Cooperative, No Acute Distress ABDOMEN EXAM: Soft; No: Tenderness Skin Exam: Nl turgor and temperature Neuro Exam: Normal Speech Psych Exam: Mental status NL, Mood NL Other physical findings mild right CVA tenderness Vital Signs/I&O Vital Signs Date Time Temp Pulse Resp B/P (MAP) Pulse Ox O2 Delivery O2 Flow Rate FiO2 09/08/18 13:52 97.8 76 17 108/80 (89) 96 09/07/18 01:55 Room Air I&O- Last 24 Hours up to 6 AM 09/08/18 05:59 Intake Total 3008.5 ml Output Total 1425 ml Balance 1583.5 ml Laboratory Data Labs 24H Laboratory Tests 2 09/07/18 17:23: Bedside Glucose (Misc Panel) 312H 09/08/18 00:04: Bedside Glucose (Misc Panel) 316H 09/08/18 06:06: Bedside Glucose (Misc Panel) 235H 09/08/18 06:35: Nucleated Red Blood Cells % (auto) 0.0, Anion Gap 8, Glomerular Filtration Rate 52.9, Blood Urea Nitrogen 22H, Creatinine 1.14, Sodium Level 137, Potassium Level 4.3, Chloride Level 109H, Carbon Dioxide Level 20L, Calcium Level 8.7 CBC/BMP Laboratory Tests 09/08/18 06:35 Red Blood Count 3.91 L, Mean Corpuscular Volume 92.1, Mean Corpuscular Hemoglobin 30.4, Mean Corpuscular Hemoglobin Concent 33.1, Red Cell Distribution Width 13.2, Calcium Level 8.7 FSBS Laboratory Tests Test 09/07/18 17:23 09/08/18 00:04 09/08/18 06:06 Range/Units Bedside Glucose (Misc Panel) 312 316 235 70-105 MG/DL Microbiology Microbiology 09/07/18 Blood Culture - Preliminary, Resulted No growth after 24 hours . All specim... 09/07/18 Blood Culture - Preliminary, Resulted No growth after 24 hours . All specim... 09/07/18 Respiratory Virus Panel (PCR) (DB) - Final, Complete Human Rhinovirus/Enterovirus 09/07/18 Urine Culture, Received Pending 09/06/18 Urine Culture - Final, Complete Assessment/Plan Date Seen The patient was seen on 09/08/18. Patient Summary This is a 53 y/o F w/ an obstructing distal right ureteral stone, POD 1 s/p cysto and right ureteral stent placement. Urine obtained directly from her right kidney appeared purulent. The culture thus far has shown no growth. Her admission urine culture is negative. I recommend keeping her on levaquin for a 10 day course (assuming her culture comes back positive). We will coordinate w/ cardiology to get her cleared for her upcoming ureteroscopy. Plan/VTE VTE Prophylaxis Ordered?: Yes VTE Exclusion Mechanical Proph: N/A:VTE Prophy Ordered Plan/Urinary Catheter Urinary Catheter: D/C Stringer Plan - catheter discontinued - continue levaquin for 10 day course - I will f/u on final culture result - my ophthalmology surgical technician will coordinate w/ cardiology for preop clearance - will plan on right ureteroscopy w/ laser lithotripsy once she is cleared for surgery MILADY LOPEZ MD Sep 08, 2018 14:36
--- NOTE | 2018-09-08 15:21 | DSES ---
DATE OF ADMISSION: 09/06/2018 DATE OF DISCHARGE: REASON FOR ADMISSION: The patient presented to the emergency department (ED) complaining of malaise, fever, cough, and right flank pain. Imaging study done in the ED showed evidence of a moderate right-sided obstructive uropathy with a 9 mm calculus, some evidence of diverticular affect containing periumbilical hernia. Laboratory findings at the time included normal white count 8.7, on the morning of discharge it was 18.58. She had liver function tests (LFTs) that were unremarkable. Creatinine phosphokinase (CPK) was 210. Blood urea nitrogen (BUN) and creatinine were 21 and 1.1 respectively, 22 and 1.14 the day of discharge. Lipase was elevated at 654 but she had no abdominal pain. Thyroid-stimulating hormone (TSH) was 0.159 with a free T4 of 1.35. Urine showed 3+ blood, 3+ leukocyte esterase, 137 white cells per high-power field, 2+ bacteria. Culture is pending. Urine culture on 09/06/2018 was no growth of clinical significance. Blood cultures remain negative. She had a respiratory virus panel because of cough and fever, which was positive for human rhinovirus/Enterovirus. She does have symptoms of some minimally productive cough, nasal congestion. No sore throat. Chest x-ray did not show evidence of pneumonia or cardiomegaly. On 09/07/2018, she was taken to the operating room (OR) by Dr. Urena and under monitored anesthesia care ureteral catheter was advanced to the right collecting system, 40 mL of blood tinged purulent urine removed from the right renal pelvis and sent for culture. A 6-Finnish x 22-32 cm JJ ureteral stent was advanced in the right collecting system. The Stringer was left in for a day and then has been removed. Although the patient is continuing to have some right flank pain, it was tolerable and she is prepared to go home at this time. Dr. Urena feels that she is safe to go home. We will discharge her on Levaquin, activity and diet as tolerated. Usual medications to continue. Followup with Dr. Urena per his recommendation. Antibiotic change may be needed based on final culture. Dr. Urena indicated by verbal communication to me that he will make available pain meds for the patient's well-being. She does have some irritability that Dr. Urena believes is related to the presence of the stent. DISCHARGE DIAGNOSIS: Right hydronephrosis, 9 mm right ureteral stone, suspect urinary tract infection/early pyelonephritis, hypertension, hypothyroidism Procedure: right ureteral stent placement PLAN: Discharge and followup as noted above. DISCHARGE MEDICATIONS (include): - albuterol MDI 2 puffs four times a day as needed, dyspnea - gabapentin 200 mg three times a day - hydroxyzine 10 mg as needed, anxiety - levothyroxine 100 mcg by mouth daily - lisinopril 10 mg daily - metformin 1000 mg by mouth daily - triamcinolone acetonide nasal spray 1 spray nostril daily - venlafaxine extended release 75 mg twice a day - levofloxacin 500 mg by mouth daily for 14 days MTDD
[2018-09-08] MEDS ORDERED: LevoFLOXacin IV 500 MG in APPROPRIATE DILUENT 1 EA IV SCH (21:00)
== END 2018-09-08 17:10 | disposition home or self-care (01) ==
LOC: M ED 15:16 → EDBD 15:16 → M ED INP 23:37 → M MSPAV 09-07 02:05 → M MS5PR 09-07 05:57
PROVIDERS: ADMIT Internal Medicine; ATTEND Family Medicine
DX: N13.2 Hydronephrosis with renal and ureteral calculous obstruction (principal); N39.0 Urinary tract infection, site not specified; B34.1 Enterovirus infection, unspecified; I12.9 Hypertensive chronic kidney disease with stage 1 through stage 4 chronic kidney disease, or unspecified chronic kidney disease; E03.9 Hypothyroidism, unspecified; E11.9 Type 2 diabetes mellitus without complications; F43.10 Post-traumatic stress disorder, unspecified; J45.909 Unspecified asthma, uncomplicated; Z86.73 Personal history of transient ischemic attack (TIA), and cerebral infarction without residual deficits; E78.49 Other hyperlipidemia; N18.9 Chronic kidney disease, unspecified; M51.36 Other intervertebral disc degeneration, lumbar region; Z79.01 Long term (current) use of anticoagulants; Z88.0 Allergy status to penicillin; Z79.51 Long term (current) use of inhaled steroids; Z79.4 Long term (current) use of insulin; Z79.899 Other long term (current) drug therapy
CPT/HCPCS: 36415; 52332; 71046; 74176; 74420; 80048; 80076; 81001; 82550; 82553; 83690; 84145; 84439; 84443; 85025; 85027; 87040; 87086; 87486; 87581; 87633; 87798; 93005; 93041; 94640; 94760; 96361; 96365; 96372; 96375; 99285; C1769; C2617; J1100; J1885; J1956; J2250; J2405; J3010; Q9961

== ENCOUNTER → 2018-11-24 | Outpatient (REF) | payer OTHER ==
[~2018-11-24] MED LIST changes: +CVS55SPR; +HYDR-643; +HYDR-643 PO; +LEVO500T3 PO; +SYNT100T PO
[2018-11-24 13:52] LABS: APPEARANCE, URINE CLEAR (CLEAR); BACTERIA, URINE AUTO 1+ (NEGATIVE); BILIRUBIN, URINE AUTO NEGATIVE (NEGATIVE); BLOOD, URINE BLOOD NEGATIVE (NEGATIVE); COLOR, URINE STRAW (YELLOW); GLUCOSE, URINE (UA) AUTO 2+ mg/dL (NEGATIVE); KETONE, URINE AUTO NEGATIVE (NEGATIVE); LEUKOCYTE ESTERASE, URINE AUTO TRACE (NEGATIVE); MUCUS, URINE SMALL (NEGATIVE); NITRITE, URINE AUTO NEGATIVE (NEGATIVE); PROTEIN, URINE AUTO NEGATIVE (NEGATIVE); RBC, URINE AUTO 1 /HPF (0-3); SPECIFIC GRAVITY URINE AUTO 1.006 (1.002-1.035); SQUAMOUS EPITHELIAL CELL UR AU 0 /HPF (0-6); UROBILINOGEN, URINE AUTO 0.2 mg/dL (0.0-2.0); WBC, URINE AUTO 12 /HPF (0-3)
[2018-11-24 14:36] LABS: BASO # 0.1 10^3/uL (0.0-0.2); BASO % 0.8 % (0.0-1.0); EOS # 0.1 10^3/uL (0.0-0.5); EOS % 1.3 % (0.0-3.0); HEMOGLOBIN 12.9 g/dl (12.0-15.5); LYMPH % 24.9 % (24.0-44.0); MEAN CORPUSCULAR HEMOGLOBIN 29.7 pg (27.0-33.0); MEAN CORPUSCULAR HGB CONC 33.1 g/dl (32.0-36.5); MEAN CORPUSCULAR VOLUME 89.7 fl (80.0-96.0); MONO # 0.6 10^3/uL (0.0-0.8); MONO % 7.6 % (0.0-5.0); NEUTROPHILS # 5.1 10^3/uL (1.5-8.5); NEUTROPHILS % 64.6 % (36.0-66.0); PLATELET COUNT, AUTOMATED 279 10^3/uL (150-450); RED BLOOD COUNT 4.35 10^6/uL (4.00-5.40); WHITE BLOOD COUNT 7.9 10^3/uL (4.0-10.0)
[2018-11-24 14:48] LABS: ALBUMIN 3.9 GM/DL (3.2-5.2); BILIRUBIN,TOTAL 0.4 MG/DL (0.2-1.0); CALCIUM LEVEL 9.7 MG/DL (8.5-10.1); CREATININE FOR GFR 1.17 MG/DL (0.55-1.30); FREE T4 1.06 NG/DL (0.76-1.46); GLOMERULAR FILTRATION RATE 51.3 (>51); POTASSIUM SERUM 4.1 MEQ/L (3.5-5.1); THYROID STIMULATING HORMONE 0.846 uIU/ML (0.358-3.740); TOTAL PROTEIN 7.5 GM/DL (6.4-8.2)
[2018-11-24 14:52] LABS: INR 0.9; PROTHROMBIN TIME 11.9 SECONDS (11.8-14.0)
[2018-11-24 14:53] LABS: HEMOGLOBIN A1c 8.1 %; PARTIAL THROMBOPLASTIN TIME 24.6 SECONDS (25.0-38.4)
== END ==
LOC: M SFHCPLAZ 12:49
PROVIDERS: ATTEND Family Medicine
DX: E11.9 Type 2 diabetes mellitus without complications (principal)

== ENCOUNTER 2018-12-05 09:04 | Day surgery (SDC) | payer OTHER ==
[2018-12-05] VITALS (7 sets, daily range): BP systolic 102–134; BP diastolic 55–68
[~2018-12-05] VITALS: Ht 167.6 cm; Wt 87.5 kg
[2018-12-05] MEDS ORDERED: CIPROFLOXACIN 400 MG in IV 1 EA IV ONE (10:00)
[2018-12-05] MEDS ORDERED: CONRAY-60 60% 50ML VIAL (Q9961) As Ordered ONE (10:31)
[2018-12-05] MEDS ORDERED: MIDAZOLAM INJ 2 MG/2 ML VIAL (J2250) As Ordered ONE (10:35)
[2018-12-05] MEDS ORDERED: ROCURONIUM BROMIDE 50 MG/5 ML VIAL As Ordered ONE (10:35)
[2018-12-05] MEDS ORDERED: fentaNYL 100 MCG/2 ML INJECTION (J3010) As Ordered ONE ×2 (10:35→11:29)
[2018-12-05] MEDS ORDERED: dexameTHASONE 4 MG/ML 1ML VIAL (J1100) As Ordered ONE (10:35)
[2018-12-05] MEDS ORDERED: LIDOCAINE 2% INJ 100 MG/5 ML SDV (FOR ANES.) As Ordered ONE (10:35)
[2018-12-05] MEDS ORDERED: PROPOFOL 200 MG/20 ML VIAL As Ordered ONE (10:35)
[2018-12-05] MEDS ORDERED: ONDANSETRON 4MG/2ML VIAL (J2405) As Ordered ONE (10:35)
[2018-12-05] MEDS ORDERED: diphenhydrAMINE INJ 50MG/ML VIAL (J1200) As Ordered ONE (11:22)
[2018-12-05] MEDS ORDERED: METOCLOPRAMIDE INJ 10MG/2ML VIAL (J2765) As Ordered ONE (11:23)
[2018-12-05] MEDS ORDERED: ePHEDrine SULFATE 25 MG/5 ML(5MG/ML) SYRINGE As Ordered ONE (11:25)
[2018-12-05] MEDS ORDERED: SUGAMMADEX SODIUM 500 MG/5 ML VIAL (BRIDION) As Ordered ONE (11:36)
[2018-12-05] MEDS ORDERED: METHYLENE BLUE 0.5% (5MG/ML) 10 ML AMP (PROVAYBLUE)(Q9968 PER 1MG) As Ordered ONE (12:08)
[2018-12-05] MEDS ORDERED: FUROSEMIDE 100 MG/10 ML VIAL (J1940) As Ordered ONE (12:14)
[2018-12-05] MEDS ORDERED: FUROSEMIDE 20 MG/2 ML VIAL (J1940) As Ordered ONE (12:16)
[2018-12-05] MEDS ORDERED: FLUORESCEIN 10% (100MG/ML) 5 ML VIAL As Ordered ONE (12:28)
[2018-12-05] MEDS ORDERED: ALBUTEROL 90 MCG/ACT 8GM HFA INHALER INH PRN (13:15)
[2018-12-05] MEDS ORDERED: hydrOXYzine 10 MG TAB PO PRN (13:15)
[2018-12-05] MEDS ORDERED: MORPHINE 4 MG/ML 1ML VIAL/SYRINGE (J2270) IV PRN (13:15)
--- NOTE | 2018-12-05 13:35 | REP ---
Retrograde pyelogram: Single view. History: Cystoscopy. Right ureteral stent exchange. 21 seconds of fluoroscopy time is reported. Findings: A single last image hold fluoroscopically obtained spot radiograph of the right abdomen documents right ureteral guidewire placement. Electronically Signed by Delvin Garcia MD 12/05/2018 05:17 P
[2018-12-05] MEDS ORDERED: fentaNYL 100 MCG/2 ML INJECTION (J3010) IV PRN (13:45)
[2018-12-05] MEDS ORDERED: LR 1,000 ML IV SCH (13:45)
[2018-12-05] MEDS ORDERED: D5W/0.45% SODIUM CHLORIDE 1,000 ML IV SCH (13:45)
[2018-12-05] MEDS ORDERED: ONDANSETRON 4MG/2ML VIAL (J2405) IV PRN (13:45)
[2018-12-05] MEDS ORDERED: GLUCOSE 4 GM CHEW TABLET PO PRN ×3 (14:15→17:15)
[2018-12-05] MEDS ORDERED: DEXTROSE 50% 50 ML SYRINGE IV PRN ×2 (14:15→17:15)
[2018-12-05] MEDS ORDERED: GLUCAGON FOR INJ 1 MG VIAL (J1610) SC PRN ×3 (14:15→17:15)
[2018-12-05] MEDS: PERCOCET 5MG/325MG TAB PO PRN ×2 (15:42→20:26)
[2018-12-05] MEDS: GABAPENTIN 100 MG CAP PO SCH ×2 (16:53→20:25)
[2018-12-05] MEDS: HumaLOG INSULIN (NovoLOG) PER UNIT SC SCH (17:42)
[2018-12-05] MEDS ORDERED: HumaLOG INSULIN (NovoLOG) PER UNIT SC ONE ×3 (20:30→23:30)
[2018-12-05 20:44] LABS: BEDSIDE GLUCOSE CONFIRMATION 476 MG/DL (LESS THAN 200)
[2018-12-05] MEDS ORDERED: HumaLOG INSULIN (NovoLOG) PER UNIT SC SCH (21:00)
[2018-12-05] MEDS: NS 1,000 ML IV SCH (21:30)
[2018-12-05 21:48] LABS: BLOOD UREA NITROGEN 23 MG/DL (7-18); CALCIUM LEVEL 8.6 MG/DL (8.5-10.1); CARBON DIOXIDE LEVEL 20 MEQ/L (21-32); CHLORIDE LEVEL 102 MEQ/L (98-107); CREATININE FOR GFR 1.81 MG/DL (0.55-1.30); POTASSIUM SERUM 4.5 MEQ/L (3.5-5.1); SODIUM LEVEL 134 MEQ/L (136-145)
[2018-12-06] VITALS (10 sets, daily range): BP systolic 92–162; BP diastolic 53–85
[2018-12-06] MEDS: PERCOCET 5MG/325MG TAB PO PRN ×4 (00:58→21:49)
[2018-12-06] MEDS: NS 1,000 ML IV SCH ×3 (03:00→13:15)
[2018-12-06] MEDS: LEVOTHYROXINE 100MCG TABLET (0.1MG) PO SCH (05:35)
[2018-12-06 05:52] LABS: HEMOGLOBIN 10.7 g/dl (12.0-15.5); MEAN CORPUSCULAR HEMOGLOBIN 30.3 pg (27.0-33.0); MEAN CORPUSCULAR HGB CONC 33.4 g/dl (32.0-36.5); MEAN CORPUSCULAR VOLUME 90.7 fl (80.0-96.0); PLATELET COUNT, AUTOMATED 249 10^3/uL (150-450); RED BLOOD COUNT 3.53 10^6/uL (4.00-5.40)
[2018-12-06 06:10] LABS: CALCIUM LEVEL 8.2 MG/DL (8.5-10.1); CREATININE FOR GFR 1.18 MG/DL (0.55-1.30); GLOMERULAR FILTRATION RATE 50.8 (>51); POTASSIUM SERUM 4.1 MEQ/L (3.5-5.1)
[2018-12-06] MEDS: HumaLOG INSULIN (NovoLOG) PER UNIT SC SCH ×2 (07:30→17:49)
[2018-12-06] MEDS: GABAPENTIN 100 MG CAP PO SCH ×3 (08:22→20:43)
--- NOTE | 2018-12-06 08:58 | CR.PDOC ---
General Date of Consultation: Dec 06, 2018 Referring Provider: BITA MCFARLANE MD Consultation REASON FOR CONSULTATION/CHIEF COMPLAINT: Diabetes management HISTORY OF PRESENT ILLNESS: Ms. Orozco is here for Urologic procedure. She is NPO. She was receiving D5 containing IV fluid until yesterday and blood sugar were high, in the range of 300-500. IV fluid was changed last night; now blood sugar is down to 125. Pt takes Metformin only for diabetes at home. ALLERGIES: Please see below. HOME MEDICATIONS: Please see below. PAST MEDICAL HISTORY: 1. Degenerative disc disease. 2. Hypertension. 3. Hypothyroidism 4 type 2 diabetes 5 gastroesophageal reflux disease 6. Mood disorder with depression and PTSD 7 CVA 8 tobacco abuse 9 dyslipidemia 10 chronic kidney disease 11 umbilical hernia 12 nephrolithiasis. HOME MEDICATIONS: Please see below. ALLERGIES: Please see below PAST SURGICAL HISTORY: 1. Right arm metal plate implant. 2. .. SOCIAL HISTORY: Lives with: Alone, Employment: Disabled, Tobacco use: Active smoker approximate 40 pack years. ETOH: Denies last drink one month ago, Illicit drug use: Denies, Tattoos done unprofessionally: Denies, CODE STATUS: Full code FAMILY HISTORY:Reviewed and noncontributory SOCIAL HISTORY: No smoking, alcohol or drug use REVIEW OF SYSTEMS: All 10 systems reviewed, negative except abdominal pain. PHYSICAL EXAMINATION: VITAL SIGNS: Please see below. GENERAL APPEARANCE: A, Ox3, NAD HEENT: PERRLA RESPIRATORY: CTA b/l CARDIOVASCULAR: regular rate and rhythm ABDOMEN: soft, nontender, +BS EXTREMITIES: no edema; pulses are good NEUROLOGICAL: no deficits PSYCHIATRIC: normal mood LABORATORY DATA: Please see below. ASSESSMENT/PLAN: 1. Iatrogenic Hyperglycemia due to D5 containing IV fluid, hx/o NIDDM - Blood sugar is controlled now with appropriate IV fluid - I have discontinued Metformin. Pt may continue it after discharge - Fingerstick q6h now without coverage. I do not expect pt to require insulin. - Finger stick with sliding scale coverage would be appropriate when pt starts eating Thank you for asking me to see Ms. Pham. Vital Signs/I&O Vital Signs Date Time Temp Pulse Resp B/P (MAP) Pulse Ox O2 Delivery O2 Flow Rate FiO2 12/06/18 08:22 142/85 12/06/18 08:14 64 12/06/18 08:00 97.5 18 96 12/05/18 12:56 3 I&O- Last 24 Hours up to 6 AM 12/06/18 05:59 Intake Total 4737 ml Output Total 2325 ml Balance 2412 ml Laboratory Data Labs 24H Laboratory Tests 2 12/05/18 10:26: Bedside Glucose (Misc Panel) 147H 12/05/18 13:03: Bedside Glucose (Misc Panel) 177H 12/05/18 16:51: Bedside Glucose (Misc Panel) 314H 12/05/18 19:55: Bedside Glucose (Misc Panel) 503*H 12/05/18 20:10: Bedside Glucose Confirm (Misc) 476*H, Anion Gap 12, Glomerular Filtration Rate 31.0L, Blood Urea Nitrogen 23H, Creatinine 1.81H, Sodium Level 134L, Potassium Level 4.5, Chloride Level 102, Carbon Dioxide Level 20L, Calcium Level 8.6 12/05/18 21:21: Bedside Glucose (Misc Panel) 513*H 12/05/18 22:47: Bedside Glucose (Misc Panel) 351H 12/06/18 05:33: Anion Gap 8, Glomerular Filtration Rate 50.8L, Blood Urea Nitrogen 21H, Creatin ine 1.18, Sodium Level 140, Potassium Level 4.1, Chloride Level 110H, Carbon Dioxide Level 22, Calcium Level 8.2L, Nucleated Red Blood Cells % (auto) 0.0 CBC/BMP Laboratory Tests 12/05/18 20:10 Calcium Level 8.6 12/06/18 05:33 Calcium Level 8.2 L, Red Blood Count 3.53 L, Mean Corpuscular Volume 90.7, Mean Corpuscular Hemoglobin 30.3, Mean Corpuscular Hemoglobin Concent 33.4, Red Cell Distribution Width 14.0 Allergies Coded Allergies: Penicillins (Verified Allergy, Intermediate, RASH, 12/05/18) eszopiclone (Verified Allergy, Intermediate, rash, 12/05/18) paroxetine (Verified Allergy, Intermediate, rASH, 12/05/18) Home Medications Scheduled Gabapentin (Gabapentin) 100 Mg Capsule, 200 MG PO TID, (Reported) Levothyroxine Sodium (Synthroid) 100 Mcg Tablet, 100 MCG PO DAILY, (Reported) Lisinopril (Lisinopril) 10 Mg Tablet, 10 MG PO DAILY, (Reported) Metformin HCl (Metformin HCl) 1,000 Mg Tablet, 1,000 MG PO DAILY, (Reported) Scheduled PRN Albuterol Sulfate (Ventolin Hfa) 18 Gm Hfa.aer.ad, 2 PUFFS INH QID PRN for SHORTNESS OF BREATH, (Reported) Hydroxyzine HCl (Hydroxyzine HCl) 10 Mg Tablet, 10 MG PO TID PRN for ANXIETY, (Reported) RAMA MYLES MD Dec 06, 2018 08:58
[2018-12-06] MEDS ORDERED: LISINOPRIL 10 MG TAB PO SCH (09:00)
[2018-12-06] MEDS ORDERED: metFORMIN (GLUCOPHAGE) 1000 MG TABLET PO SCH (09:00)
--- NOTE | 2018-12-06 10:09 | RO ---
DATE OF SURGICAL PROCEDURE: 12/05/2018 PREOPERATIVE DIAGNOSIS: Atrophic right kidney with longstanding right hydroureteronephrosis secondary to a 9 mm distal right ureteral stone status post stent placement by Dr. Urena 09/07/2018. POSTOPERATIVE DIAGNOSIS: Atrophic right kidney with longstanding right hydroureteronephrosis secondary to a 9 mm distal right ureteral stone status post stent placement by Dr. Urena 09/07/2018. PROCEDURE: Cystoscopy, right ureteroscopy, right laser lithotripsy and stone basketing and attempted, but failed, right ureteral stent replacement. SURGEON: Dr. Shanell Cavazos GASATERIA ATTENDANT: ANESTHESIA: General. MEDICATIONS: Preoperative antibiotics. FINDINGS: Significant inflammation at the area of the stone with the stone stuck in the periureteral wall and then inability to see the ureteral orifice, to see the proximal ureter after laser lithotripsy and stone basketing, most likely with a ureteral false passage. INDICATIONS FOR PROCEDURE: The patient is a 53-year-old female who had gotten an ultrasound incidentally for elevated LFTs. Because of the finding of right hydroureteronephrosis, which again was an incidental finding, a CT scan of the abdomen and pelvis was done which showed a longstanding right hydroureteronephrosis with an atrophic kidney down to a 9 mm distal ureteral stone. Dr. Urena then placed a stent on 09/07/2018. The stent was extremely uncomfortable for the patient and she was scheduled today with me for ureteroscopic stone manipulation. All different options, alternatives, risks, and benefits were discussed and informed consent was obtained in verbal and written form. The possibility of ureteral injury and inability to remove the entire stone was discussed. PROCEDURE: The patient was brought into the operating room and general anesthesia was induced. She was placed in the lithotomy position and careful attention was paid that her pressure points were well padded and protected. She was prepped and draped in the usual fashion. Next, a #21-Romanian cystoscope was inserted. Upon entering the bladder the ureteral stent was seen coming out of the right ureter and this was grasped and removed. Next, a wire was placed in the right ureteral orifice up into the kidney and this was left as a safety wire. A second wire was then placed and a rigid ureteroscope was passed over this. The stone was seen in the distal ureter and there was a very significant amount of inflammatory tissue around the stone and the stone was imbedded into the ureteral tissue. At this point, I used a laser fiber with both the dusting mode and the higher mode to break the stone, but there were so many stone fragments left I then decided to place a stone basket and try to remove some of these fragments. My safety wire at this point was still in place. I then back loaded the wire through a 21-Romanian cystoscope, but when I tried to place the stent it would not pass over the wire. At this point, I tried to put in an open-ended catheter to do a retrograde to make sure that my wire was in the correct position, but also was unable to pass the open-ended catheter through this area. At that this point, it was decided to remove the wire and to look again with the ureteroscope to see if I could see the proximal ureter and replaced the wire to make sure that it was in the correct spot. Unfortunately there were at least one or two false passages and I was unable to see the proximal ureter well enough to replace a wire and a stent. At this point, the patient was brought back to the recovery room and it was decided to admit her overnight. I discussed these findings with the interventional radiologist, Dr. Lepe, of my findings in the operating room and my inability to place a stent. Although there is a possibility of a ureteral disruption I never saw significant ureteral tissue, but there is definitely false passages. At this point, she has recommended doing an ultrasound tomorrow to look for a urinoma or hydronephrosis and at that point she can place a nephrostomy tube and at some point we can attempt an antegrade procedure. I discussed these findings at length with the patient in the hospital. We discussed that the very worse case scenario is that this is true ureteral disruption, but because of her significant atrophy, a nephrectomy may be indicated. Unfortunately, the patient even before the surgery was crying hysterically in the bed because the stent has been so uncomfortable and after the surgery was not happy at all with the surgical findings. I tried to explain it the best that I could and unfortunately did explain the worse case scenario, which is what the patient held onto even though I kept on going back to the part that this actually may drain on its own or that we may be able to bypass the false passage by putting something antegrade.
--- NOTE | 2018-12-06 11:16 | REP ---
RENAL ULTRASOUND: Real-time sonographic evaluation of kidneys performed. Right kidney measures 7.6 x 4.0 x 4.6 cm and left kidney 11.8 x 6.2 x 6.0 cm. There is moderate to severe right hydronephrosis. There is no hydronephrosis on the left. No renal mass is seen. Urinary bladder is not distended and not well evaluated. Ureteral jets could not be seen with Doppler evaluation. IMPRESSION: Moderate to severe right hydronephrosis. Electronically Signed by Negrito Rojas MD 12/06/2018 03:58 P
[2018-12-06 12:31] LABS: INR 1.01
[2018-12-06 12:43] LABS: AMORPHOUS SEDIMENT SMALL (NEGATIVE); BACTERIA, URINE AUTO NEGATIVE (NEGATIVE); RBC, URINE AUTO 6 /HPF (0-3); SQUAMOUS EPITHELIAL CELL UR AU 0 /HPF (0-6); WBC, URINE AUTO 4 /HPF (0-3)
[2018-12-06] MEDS ORDERED: ISOVUE-300 61% 50ML VIAL (Q9967) As Ordered ONE (13:40)
[2018-12-06] MEDS ORDERED: LIDOCAINE 1% MDV 20ML VIAL As Ordered ONE (13:40)
[2018-12-06] MEDS ORDERED: fentaNYL 100 MCG/2 ML INJECTION (J3010) As Ordered ONE (13:41)
[2018-12-06] MEDS ORDERED: diphenhydrAMINE INJ 50MG/ML VIAL (J1200) As Ordered ONE (13:41)
[2018-12-06] MEDS ORDERED: MIDAZOLAM INJ 2 MG/2 ML VIAL (J2250) As Ordered ONE (13:41)
[2018-12-06] MEDS ORDERED: CIPROFLOXACIN/D5W 400 MG/200 ML BAG (J0744) As Ordered ONE (13:42)
--- NOTE | 2018-12-06 13:54 | IPNPDOC ---
Text Note Date of Service The patient was seen on 12/06/18. NOTE Patient is status post right ureteroscopy, laser lithotripsy, and stone baske ting yesterday and I was unable to place a ureteral stent. There was definitely a ureteral false passage. It was decided to admit the patient overnight and if there was hydronephrosis today on an ultrasound to proceed with a right nephrostomy tube placement, antegrade nephrostogram, and stent placement. The ultrasound does indeed show [place] so she is going to interventional radiology today for the above procedure. She had some right flank pain overnight but no significant right sided abdominal pain. Physical exam: She has been afebrile overnight. Again she does have some right CVA tenderness. Her abdomen is surprisingly soft and nontender. Show no cyanosis clubbing or edema. Impression: -Postop day #1 right ureteroscopy, laser lithotripsy, and stone basketing unable to place a right ureteral stent -CT scan had shown significant right atrophic changes with long-standing obstruction with a 9 mm distal stone which has probably been there for a very long time and ureteroscopy showed significant edema and see-ureteral changes in this area -Type 2 diabetes now being managed by hospitalist also in a patient with some mental illness Plan: -Right nephrostomy tube placement today and they will do a right retrograde pyelogram and see if there is any possibility of transversing and placing a ureteral stent -Continue antibiotic coverage and medical management -Elevated white blood count waiting final urine culture VS,Susan, I+O VS, Susan, I+O Laboratory Tests 12/05/18 20:10 Calcium Level 8.6 12/06/18 05:33 Calcium Level 8.2 L, Red Blood Count 3.53 L, Mean Corpuscular Volume 90.7, Mean Corpuscular Hemoglobin 30.3, Mean Corpuscular Hemoglobin Concent 33.4, Red Cell Distribution Width 14.0 Vital Signs Date Time Temp Pulse Resp B/P (MAP) Pulse Ox O2 Delivery O2 Flow Rate FiO2 12/06/18 13:33 97.8 67 20 98 12/06/18 08:22 142/85 12/05/18 12:56 3 I&O- Last 24 Hours up to 6 AM 12/06/18 06:00 Intake Total 4737 ml Output Total 2325 ml Balance 2412 ml BITA MCFARLANE MD Dec 06, 2018 13:53
--- NOTE | 2018-12-06 15:27 | IRMSE ---
[facility] IR Moderate Sedation Eval. Date and Time Date: Dec 06, 2018 Time: 13:38 ASA Classification ASA Classification: II-Mild systemic disease Mallampati Score: II NPO: Yes Obstructive Sleep Apnea: No Interval Plan: moderate sedation GALEN BEE MD Dec 06, 2018 15:27
--- NOTE | 2018-12-06 15:30 | POST-OPPD ---
Postoperative Procedure Note Date Of Procedure: Dec 06, 2018 Time Of Procedure: 15:28 PREOPERATIVE DIAGNOSIS: hydronephrosis post laser lithotripsy POSTOPERATIVE DIAGNOSIS: hydronephrosis post laser lithotripsy FINDINGS: right hydronephrosis PROCEDURE: right nephroureteral catheter stent placement SURGEON: Roberth ANESTHESIA: moderate sedation ESTIMATED BLOOD LOSS: < 5 ml COMPLICATIONS: none POSTOPERATIVE CONDITION: stable GALEN BEE MD Dec 06, 2018 15:29
[2018-12-06] MEDS ORDERED: PERCOCET PO (15:35)
[2018-12-06] MEDS ORDERED: BACT800T5 PO (15:39)
--- NOTE | 2018-12-06 15:56 | REP ---
IR Percutaneous nephro ureteral stent catheter placement using fluoroscopy and ultrasound guidance. IR nephrostogram and ureterogram. IR moderate sedation. Ultrasound of the right kidney. Clinical information: Right sided hydronephrosis status post laser lithotripsy. Physician: Dr Lepe. Procedure: The patient was advised of the benefits, risks and alternatives of the procedure and informed consent was obtained. The time-out was performed with verification of the patient's name, MRN, site of procedure and type of procedure to be performed. The patient was positioned in the prone position on the angiographic table. The site was prepped and draped in the usual sterile fashion. Moderate sedation was performed by the physician including the presence of an independent trained observer who assisted in monitoring the patient's level of consciousness and physiologic status. Following the administration of Fentanyl and Versed, the physician spent 60 minutes of face to face time with the patient. A button grader radiograph reveals no gross abnormality. The anticipated puncture site on the flank was anesthetized with lidocaine. Using ultrasound guidance, a mid pole calyx was accessed with a 21 gauge Chiba needle. A nephrostogram and ureterogram was performed demonstrating severe hydronephrosis and proximal ureteral spasm/occlusion. An 018 wire was then advanced into the collecting system. The needle was then exchanged for a non vascular introducer set. A glide wire in conjunction with a glide cath was used to recanalize the iroquois ureter down to the bladder using fluoro guidance. Contrast injection confirms location in the collecting system and bladder. The glidewire was exchanged for an Amplatz wire which was advanced under fluoroscopy guidance through the catheter into the bladder. The sheath and catheter were removed. A 8.5 Solomon Islander nephro ureteral stent catheter was then advanced over the wire into the bladder. The distal pigtail was formed and locked in position. A final nephrostogram ureterogram was performed confirming position of the pigtail in the bladder. No extravasation. The catheter was sutured in position with 2-0 Prolene and a sterile dressing was applied. The patient tolerated the procedure well and was returned to the PRU in stable condition. EBL: < 5 ml. Complications: None. Conclusion: 1. Nephrostogram and ureterogram demonstrate right sided hydronephrosis and ureteral obstruction/spasm. 2. Successful right-sided nephro ureteral stent catheter placement. Patient to follow up in IR in 2 weeks for internalization. Thank you for this referral. Electronically Signed by Joy Lepe MD 12/06/2018 03:55 P
[2018-12-06] MEDS ORDERED: ONDANSETRON 4MG/2ML VIAL (J2405) IV PRN (16:00)
[2018-12-06] MEDS ORDERED: GLUCOSE 4 GM CHEW TABLET PO PRN (17:00)
[2018-12-06] MEDS ORDERED: GLUCAGON FOR INJ 1 MG VIAL (J1610) SC PRN (17:00)
[2018-12-06] MEDS ORDERED: DEXTROSE 50% 50 ML SYRINGE IV PRN (17:00)
[2018-12-06] MEDS ORDERED: ACETAMINOPHEN 325 MG TAB PO PRN (17:00)
[2018-12-06] MEDS ORDERED: NS 1,000 ML IV SCH (17:15)
[2018-12-06] MEDS ORDERED: HumaLOG INSULIN (NovoLOG) PER UNIT SC SCH (21:00)
[2018-12-07] MEDS: PERCOCET 5MG/325MG TAB PO PRN ×3 (02:10→10:25)
[2018-12-07 04:00] VITALS: BP 102/58
[2018-12-07] MEDS: LEVOTHYROXINE 100MCG TABLET (0.1MG) PO SCH (06:20)
[2018-12-07] MEDS: GABAPENTIN 100 MG CAP PO SCH (08:21)
[2018-12-07] MEDS: HumaLOG INSULIN (NovoLOG) PER UNIT SC SCH (08:22)
[2018-12-07 09:36] LABS: HEMATOCRIT 35.9 % (36.0-47.0); HEMOGLOBIN 11.6 g/dl (12.0-15.5); MEAN CORPUSCULAR HEMOGLOBIN 30.2 pg (27.0-33.0); MEAN CORPUSCULAR HGB CONC 32.3 g/dl (32.0-36.5); MEAN CORPUSCULAR VOLUME 93.5 fl (80.0-96.0); PLATELET COUNT, AUTOMATED 278 10^3/uL (150-450); RED BLOOD COUNT 3.84 10^6/uL (4.00-5.40); WHITE BLOOD COUNT 11.5 10^3/uL (4.0-10.0)
[2018-12-07 10:00] LABS: ALBUMIN 3.5 GM/DL (3.2-5.2); BILIRUBIN,TOTAL 0.2 MG/DL (0.2-1.0); CALCIUM LEVEL 9.1 MG/DL (8.5-10.1); CREATININE FOR GFR 1.27 MG/DL (0.55-1.30); GLOMERULAR FILTRATION RATE 46.7 (>51); POTASSIUM SERUM 4.1 MEQ/L (3.5-5.1); TOTAL PROTEIN 6.9 GM/DL (6.4-8.2)
--- NOTE | 2018-12-07 10:12 | IPNPDOC ---
Text Note Date of Service The patient was seen on 12/07/18. NOTE Catalina has some discomfort from the stent especially with movement. She was stable for discharge last night but there were transportation and other mental health issues. Dr. Lepe wants the nephrostomy tube flushed daily so we are going to try to get home health Physical exam: She has been afebrile overnight. She does have some tenderness at the right nephrostomy tube Impression: -Postop day #2 right ureteroscopy, laser lithotripsy, and stone basketing unable to place a right ureteral stent now with a right percutaneous nephrostomy tube and integral stent -Type 2 diabetes now being managed by hospitalist also in a patient with some mental illness Plan: -Patient is cleared to be discharged from urologic standpoint. Our office will contact her to have a right antegrade nephrostogram done in 2 weeks and at that point Dr. Lepe will either remove the percutaneous nephrostomy tube and stent or put in an indwelling ureteral stent. -When I did the discharge yesterday I wrote her for Percocet and also antibiotics VS,Susan, I+O VS, Susan, I+O Laboratory Tests 12/07/18 09:07 Red Blood Count 3.84 L, Mean Corpuscular Volume 93.5, Mean Corpuscular Hemoglobin 30.2, Mean Corpuscular Hemoglobin Concent 32.3, Red Cell Distribution Width 14.5, Calcium Level 9.1, Aspartate Amino Transf (AST/SGOT) 15, Alanine Ami notransferase (ALT/SGPT) 29, Alkaline Phosphatase 65, Total Bilirubin 0.2, Total Protein 6.9, Albumin 3.5 Vital Signs Date Time Temp Pulse Resp B/P (MAP) Pulse Ox O2 Delivery O2 Flow Rate FiO2 12/07/18 06:50 18 12/07/18 04:00 98.0 60 102/58 (73) 95 12/06/18 14:47 2 I&O- Last 24 Hours up to 6 AM 12/07/18 06:00 Intake Total 4630 ml Output Total 1725 ml Balance 2905 ml BITA MCFARLANE MD Dec 07, 2018 10:12
--- NOTE | 2018-12-07 11:10 | IPNPDOC ---
Subjective Date Seen The patient was seen on 12/07/18. Subjective Chief Complaint/HPI c/o pain at nephrostomy site Constitutional: Denies: Chills, Fever Pulmonary: Denies: Dyspnea, Cough Cardiovascular: Denies: Chest Pain, Palpitations, Orthopnea Gastrointestinal: Denies: Nausea, Vomiting, Abdominal Pain, Diarrhea, Constipation Objective Physical Examination General Exam: Positive: Alert (tearful) Chest Exam: Positive: Clear to auscultation, Normal air movement Heart Exam: Positive: Rate Normal, Regular Rhythm Abdomen Exam: Positive: Normal bowel sounds, Soft; Negative: Tenderness Assessment /Plan Problems (1) Diabetes type 2, controlled Status: Chronic Response to Treatment: Stable Problem Text: blood sugars improved with d/c D5 IVF. Continue usual regimen as outpatient (2) Nephrostomy status Problem Text: PEr Urology (3) Hydronephrosis with renal and ureteral calculous obstruction Plan/VTE VTE Prophylaxis Ordered?: No (d/c home - ambulating) VS, I&O, 24H, Fishbone Vital Signs/I&O Vital Signs Date Time Temp Pulse Resp B/P (MAP) Pulse Ox O2 Delivery O2 Flow Rate FiO2 12/07/18 10:25 18 12/07/18 04:00 98.0 60 102/58 (73) 95 12/06/18 14:47 2 I&O- Last 24 Hours up to 6 AM 12/07/18 06:00 Intake Total 4630 ml Output Total 1725 ml Balance 2905 ml Laboratory Data 24H LABS Laboratory Tests 2 12/06/18 11:43: Bedside Glucose (Misc Panel) 142H 12/06/18 12:02: Prothrombin Time 13.0, Prothromb Time International Ratio 1.01 12/06/18 12:13: Urine WBC (Auto) 4H, Urine RBC (Auto) 6H, Urine Hyaline Casts (Auto) 0, Urine Bacteria (Auto) NEGATIVE, Urine Squamous Epithelial Cells 0, Urine Amorphous Sediment SMALLH, Urine Sperm (Auto) 12/06/18 17:06: Bedside Glucose (Misc Panel) 105 12/06/18 20:20: Bedside Glucose (Misc Panel) 210H 12/07/18 06:36: Bedside Glucose (Misc Panel) 154H 12/07/18 09:07: Nucleated Red Blood Cells % (auto) 0.0, Anion Gap 8, Glomerular Filtration Rate 46.7L, Blood Urea Nitrogen 19H, Creatinine 1.27, Sodium Level 141, Potassium Level 4.1, Chloride Level 108H, Carbon Dioxide Level 25, Calcium Level 9.1, Aspartate Amino Transf (AST/SGOT) 15, Alanine Aminotransferase (ALT/SGPT) 29, Alkaline Phosphatase 65, Total Bilirubin 0.2, Total Protein 6.9, Albumin 3.5, Albumin/Globulin Ratio 1.03 CBC/BMP Laboratory Tests 12/07/18 09:07 Red Blood Count 3.84 L, Mean Corpuscular Volume 93.5, Mean Corpuscular Hemoglobin 30.2, Mean Corpuscular Hemoglobin Concent 32.3, Red Cell Distribution Width 14.5, Calcium Level 9.1, Aspartate Amino Transf (AST/SGOT) 15, Alanine Aminotransferase (ALT/SGPT) 29, Alkaline Phosphatase 65, Total Bilirubin 0.2, Total Protein 6.9, Albumin 3.5 Microbiology Microbiology 12/06/18 Urine Culture - Final, Complete OSEI EATON PA-C Dec 07, 2018 11:10
[2018-12-14 00:07] LABS: COMMENT Note: (.); Ca Ox Monohydrate 85 % (.); Uric Acid 10 % (.)
[2019-01-05] MEDS ORDERED: OXYC1TAB23 PO (10:56)
== END 2018-12-07 13:25 | disposition home or self-care (01) ==
LOC: M SDC 09:04 → M PED 13:55 → M MS4PR 12-06 19:00 → UNDOADMOB 12-07 10:57 → M MS4PR 12-07 10:57 → UNDODISOB 12-07 11:00 → M SDC 12-07 13:24
PROVIDERS: ATTEND Specialist
DX: N13.2 Hydronephrosis with renal and ureteral calculous obstruction (principal); I12.9 Hypertensive chronic kidney disease with stage 1 through stage 4 chronic kidney disease, or unspecified chronic kidney disease; E11.22 Type 2 diabetes mellitus with diabetic chronic kidney disease; N18.3 Chronic kidney disease, stage 3 (moderate); E03.9 Hypothyroidism, unspecified; I44.7 Left bundle-branch block, unspecified; J45.30 Mild persistent asthma, uncomplicated; E78.00 Pure hypercholesterolemia, unspecified; K21.9 Gastro-esophageal reflux disease without esophagitis; R06.02 Shortness of breath; M41.9 Scoliosis, unspecified; M54.5 Low back pain; F41.9 Anxiety disorder, unspecified; F32.9 Major depressive disorder, single episode, unspecified; F43.10 Post-traumatic stress disorder, unspecified; F17.210 Nicotine dependence, cigarettes, uncomplicated; R41.83 Borderline intellectual functioning; Z87.440 Personal history of urinary (tract) infections; Z88.0 Allergy status to penicillin; Z88.1 Allergy status to other antibiotic agents; Z79.899 Other long term (current) drug therapy; Z79.84 Long term (current) use of oral hypoglycemic drugs; Z78.0 Asymptomatic menopausal state; Z87.81 Personal history of (healed) traumatic fracture; Z86.73 Personal history of transient ischemic attack (TIA), and cerebral infarction without residual deficits
CPT/HCPCS: 36415; 50695; 52353; 74420; 76775; 80048; 80053; 81015; 82360; 82947; 85027; 85610; 87086; 88300; 96360; 96361; 96372; 96374; 99152; 99153; C1769; C1887; C1894; C2617; C2625; J0744; J1100; J1200; J1940; J2250; J2270; J2405; J2765; J3010; Q9961; Q9967; Q9968

== ENCOUNTER → 2018-12-16 | Outpatient (REF) | payer OTHER ==
[~2018-12-16] MED LIST changes: +BACT800T5 PO; +PERCOCET PO
[2018-12-16 18:20] LABS: HEMOGLOBIN A1c 8.1 %
[2018-12-16 18:44] LABS: FREE T4 1.42 NG/DL (0.76-1.46); THYROID STIMULATING HORMONE 0.092 uIU/ML (0.358-3.740)
== END ==
LOC: M SFHCPLAZ 15:33
PROVIDERS: ATTEND Physician Assistant Medical
DX: I10 Essential (primary) hypertension (principal); E03.9 Hypothyroidism, unspecified

== ENCOUNTER → 2018-12-16 | Outpatient (REF) | payer OTHER ==
[2018-12-16 18:04] LABS: BASO # 0.1 10^3/uL (0.0-0.2); BASO % 0.6 % (0.0-1.0); EOS # 0.1 10^3/uL (0.0-0.5); EOS % 0.6 % (0.0-3.0); HEMATOCRIT 38.4 % (36.0-47.0); HEMOGLOBIN 12.4 g/dl (12.0-15.5); LYMPH # 2.4 10^3/uL (1.5-5.0); LYMPH % 23.3 % (24.0-44.0); MEAN CORPUSCULAR HEMOGLOBIN 30.5 pg (27.0-33.0); MEAN CORPUSCULAR HGB CONC 32.3 g/dl (32.0-36.5); MEAN CORPUSCULAR VOLUME 94.6 fl (80.0-96.0); MONO # 0.5 10^3/uL (0.0-0.8); MONO % 4.7 % (0.0-5.0); NEUTROPHILS # 7.1 10^3/uL (1.5-8.5); NEUTROPHILS % 70.1 % (36.0-66.0); PLATELET COUNT, AUTOMATED 322 10^3/uL (150-450); RED BLOOD COUNT 4.06 10^6/uL (4.00-5.40); WHITE BLOOD COUNT 10.2 10^3/uL (4.0-10.0)
[2018-12-16 18:18] LABS: HEMATOCRIT 38.9 % (36.0-47.0)
[2018-12-16 18:40] LABS: ALBUMIN 4.1 GM/DL (3.2-5.2); ALT/SGPT 28 U/L (12-78); BILIRUBIN,DIRECT < 0.1 MG/DL (0.0-0.2); BILIRUBIN,TOTAL 0.3 MG/DL (0.2-1.0); BLOOD UREA NITROGEN 12 MG/DL (7-18); CALCIUM LEVEL 9.7 MG/DL (8.5-10.1); CARBON DIOXIDE LEVEL 24 MEQ/L (21-32); CHLORIDE LEVEL 106 MEQ/L (98-107); CHOLESTEROL LEVEL 264 MG/DL (<200); CREATININE FOR GFR 1.35 MG/DL (0.55-1.30); GLOMERULAR FILTRATION RATE 43.5 (>51); GLUCOSE, FASTING 100 MG/DL (70-100); HDL CHOLESTEROL 60 MG/DL (>40); LDL CHOLESTEROL 162 MG/DL (<100); NON-HDL-C 204 MG/DL; POTASSIUM SERUM 3.9 MEQ/L (3.5-5.1); SODIUM LEVEL 140 MEQ/L (136-145); THYROID PEROXIDASE ANTIBODY 325.4 U/ML (<60.0); THYROID STIMULATING HORMONE 0.094 uIU/ML (0.358-3.740); TOTAL 25(OH) VITAMIN D 19.4 NG/ML (30.0-100.0); TOTAL PROTEIN 7.8 GM/DL (6.4-8.2); TRIGLYCERIDES LEVEL 209 MG/DL (<150)
[2018-12-16 18:41] LABS: VITAMIN B12 LEVEL 457 PG/ML (247-911)
== END ==
LOC: M LABDRAWP 15:37
PROVIDERS: ATTEND Nurse Practitioner Psychiatric/Mental Health
DX: Z13.9 Encounter for screening, unspecified (principal); Z51.81 Encounter for therapeutic drug level monitoring

== ENCOUNTER 2018-12-23 21:14 | Emergency (ER) | payer OTHER ==
[~2018-12-23] VITALS: Ht 167.6 cm; Wt 85.5 kg
[~2018-12-23 21:14] MED LIST changes: -LIDOCAINE 1% MDV 20ML VIAL As Ordered ONE; -OXYC1TAB23 PO
[2018-12-23 21:26] VITALS: BP 168/95
--- NOTE | 2018-12-24 09:28 | REP ---
REASON: Tube placement. PRIORS: None. There is a curvilinear tubular radiodensity seen on the right entering from the right, the tip of which is in the pelvis on the right. The etiology of this tube is uncertain. The examine is otherwise unremarkable. Electronically Signed by Gabriel Medeiros DO 12/24/2018 09:43 A
[2019-01-05] MEDS ORDERED: OXYC1TAB23 PO (10:56)
== END 2018-12-23 22:21 | disposition home or self-care (01) ==
LOC: M ED 21:14
DX: Z43.6 Encounter for attention to other artificial openings of urinary tract (principal); F43.0 Acute stress reaction; J45.909 Unspecified asthma, uncomplicated; I10 Essential (primary) hypertension; E07.9 Disorder of thyroid, unspecified; G89.29 Other chronic pain; Z88.0 Allergy status to penicillin; Z88.8 Allergy status to other drugs, medicaments and biological substances; Z79.2 Long term (current) use of antibiotics; Z79.51 Long term (current) use of inhaled steroids; Z79.899 Other long term (current) drug therapy

== ENCOUNTER → 2018-12-23 | Outpatient (CLI) | payer OTHER ==
[~2018-12-23] MED LIST changes: +LIDOCAINE 1% MDV 20ML VIAL As Ordered ONE; +OXYC1TAB23 PO
== END ==
LOC: M IRPRO 10:08
PROVIDERS: ATTEND Radiology Diagnostic Radiology
DX: N13.30 Unspecified hydronephrosis (principal); Z53.9 Procedure and treatment not carried out, unspecified reason

== ENCOUNTER → 2019-01-05 | Outpatient (CLI) | payer OTHER ==
[~2019-01-05] VITALS: Ht 167.6 cm; Wt 85.3 kg
[~2019-01-05] MED LIST changes: +ACETAMINOPHEN TAB 650MG DOSE (2X325MG) PO PRN; +CIPROFLOXACIN/D5W 400 MG/200 ML BAG (J0744) As Ordered ONE; +HYDROMORPHONE HCL 0.5 MG/ 0.5 ML SYRINGE (J1170 PER 1) IV PRN; +ISOVUE-300 61% 50ML VIAL (Q9967) As Ordered ONE; +KETAMINE HCL 200 MG/20 ML VIAL As Ordered ONE; +LIDOCAINE 1% MDV 20ML VIAL As Ordered ONE; +LR 1,000 ML IV SCH; +MIDAZOLAM INJ 2 MG/2 ML VIAL (J2250) As Ordered ONE; +NS 1,000 ML IV SCH; +ONDANSETRON 4MG/2ML VIAL (J2405) IV PRN; +OXYC1TAB23 PO; +PERCOCET 5MG/325MG TAB As Ordered ONE; +PERCOCET 5MG/325MG TAB PO PRN; +fentaNYL 100 MCG/2 ML INJECTION (J3010) IV PRN
--- NOTE | 2019-01-05 14:11 | POST-OPPD ---
Postoperative Procedure Note Date Of Procedure: Jan 05, 2019 Time Of Procedure: 14:08 PREOPERATIVE DIAGNOSIS: ureteral injury POSTOPERATIVE DIAGNOSIS: ureteral injury FINDINGS: ureteral injury PROCEDURE: ureteral stenting. see full report under imaging tab SURGEON: Roberth ANESTHESIA: per anesthesia ESTIMATED BLOOD LOSS: < 5 ml COMPLICATIONS: none POSTOPERATIVE CONDITION: stable GALEN BEE MD Jan 05, 2019 14:11
[2019-01-05] MEDS: PERCOCET 5MG/325MG TAB PO PRN ×2 (14:55→15:45)
[2019-01-05 15:45] VITALS: BP 113/53
--- NOTE | 2019-01-06 14:24 | REP ---
IR Ureteral stent placement. IR Ureteral stent placement with fluoroscopy guidance. Clinical information: Right ureteral injury status post laser lithotripsy. Right hydronephrosis. Patient desires internalization of nephroureteral catheter to stent. Physician: Dr. Lepe. Procedure: The patient was advised of the benefits, risks and alternatives of the procedure and informed consent was obtained. The time-out was performed with verification of the patient's name, MRN, site of procedure and type of procedure to be performed. The patient was positioned in the prone position on the angiographic table. The site was prepped and draped in the usual sterile fashion. Anesthesia was performed by the anesthesia team. The physician spent 45 minutes of continuous face to face time with the patient. A bakery associate radiograph reveals a right nephroureteral catheter, slightly retracted. The soft tissues of the right nephroureteral catheter were anesthetized with 2% lidocaine. An antegrade nephrostogram and ureterogram demonstrate the catheter is in the renal collecting system. The sutures securing the catheter and the external position of the catheter were cut. An Amplatz wire was advanced through the catheter. The catheter was removed over the wire. A kumpe catheter was advanced under fluoroscopy guidance over the wire to the distal ureterero vesicular junction. The catheter in conjunction with the wire was used to access the bladder. The catheter was advanced over the wire into the bladder. The wire was removed. A cystogram was performed demonstrating an unremarkable bladder. And 8-Macedonian 26 cm ureteral stent was then advanced over the wire under fluoroscopy guidance. The stent was deployed in the usual fashion. The stent was positioned with the distal tip coiled in the urinary bladder and the proximal stent within the renal pelvis. Nephrostogram was then performed through the stent sheath and demonstrates appropriate positioning of the stent. The deployment device was removed, manual pressure was held over the access site and a sterile dressing was applied to the site. The patient tolerated the procedure well and was returned to the PRU in stable condition. EBL: Less than 5 ml. Complications: None. Conclusion: 1. Antegrade right nephrostogram and ureterogram demonstrate right hydronephrosis. 2. Successful placement of ureteral stent within the right ureter. 3. Patient to follow up with urology for 3-monthly stent exchanges. Thank you this referral. Electronically Signed by Joy Lepe MD 01/06/2019 02:22 P
== END ==
LOC: M IRPRO 09:33
PROVIDERS: ATTEND Radiology Diagnostic Radiology
DX: N13.30 Unspecified hydronephrosis (principal); S37.10XA Unspecified injury of ureter, initial encounter; I10 Essential (primary) hypertension; J45.909 Unspecified asthma, uncomplicated; F17.210 Nicotine dependence, cigarettes, uncomplicated; K21.9 Gastro-esophageal reflux disease without esophagitis; M54.9 Dorsalgia, unspecified; Z88.0 Allergy status to penicillin; Z88.8 Allergy status to other drugs, medicaments and biological substances; Z79.899 Other long term (current) drug therapy; X58.XXXA Exposure to other specified factors, initial encounter; Y93.9 Activity, unspecified; Y92.9 Unspecified place or not applicable; Y99.9 Unspecified external cause status
CPT/HCPCS: 50693; J0744; J2250; Q9967

== ENCOUNTER → 2019-02-03 | Outpatient (CLI) | payer OTHER ==
[~2019-02-03] MED LIST changes: -ACETAMINOPHEN TAB 650MG DOSE (2X325MG) PO PRN; -CIPROFLOXACIN/D5W 400 MG/200 ML BAG (J0744) As Ordered ONE; -HYDROMORPHONE HCL 0.5 MG/ 0.5 ML SYRINGE (J1170 PER 1) IV PRN; -ISOVUE-300 61% 50ML VIAL (Q9967) As Ordered ONE; +ISOVUE-370 76% 100ML VIAL (Q9967) As Ordered ONE; -KETAMINE HCL 200 MG/20 ML VIAL As Ordered ONE; -LIDOCAINE 1% MDV 20ML VIAL As Ordered ONE; -LR 1,000 ML IV SCH; -MIDAZOLAM INJ 2 MG/2 ML VIAL (J2250) As Ordered ONE; -NS 1,000 ML IV SCH; -ONDANSETRON 4MG/2ML VIAL (J2405) IV PRN; -PERCOCET 5MG/325MG TAB As Ordered ONE; -PERCOCET 5MG/325MG TAB PO PRN; -fentaNYL 100 MCG/2 ML INJECTION (J3010) IV PRN
--- NOTE | 2019-02-03 17:19 | REP ---
CT ABDOMEN AND PELVIS WITH AND WITHOUT IV CONTRAST (CT UROGRAM): CT abdomen and pelvis was performed in the axial plane prior to and following the intravenous administration of 100 mL of Isovue-370. Sagittal, coronal and 3D MIP reconstruction images are performed. Visualized lung bases are clear. There is a right ureteral stent in place with the proximal end coiled in the right renal pelvis and the distal end coiled in the urinary bladder. I do not see evidence of renal, ureteral or bladder calculus. There is severe right renal atrophy without hydronephrosis. The left kidney demonstrates no hydronephrosis or mass. Ureters appear normal in caliber with no abnormality. Urinary bladder is mildly distended with no filling defect. No bladder calculus is seen. There is diffuse fatty infiltration of the liver. The spleen is normal in size with no intrinsic abnormality. The adrenals and pancreas are unremarkable. There is no abdominal aortic aneurysm and there is mild atherosclerotic calcification. No adenopathy is seen. There is no free air or free fluid. There is no bowel wall thickening. The appendix is normal. No pelvic mass is seen. IMPRESSION: Right ureteral stent in place. Severe right renal atrophy. No hydronephrosis or nephrolithiasis bilaterally. Diffuse fatty infiltration of the liver. Electronically Signed by Negrito Rojas MD 02/06/2019 10:12 A
== END ==
LOC: M RAD 13:12
PROVIDERS: ATTEND Nurse Practitioner Family
DX: N20.0 Calculus of kidney (principal)
CPT/HCPCS: 74178; Q9967

== ENCOUNTER 2019-02-17 11:05 | Day surgery (SDC) | payer OTHER ==
[~2019-02-17] VITALS: Ht 167.6 cm; Wt 87.5 kg
[~2019-02-17 11:05] MED LIST changes: -ISOVUE-370 76% 100ML VIAL (Q9967) As Ordered ONE; +LIDOCAINE 1% MDV 20ML VIAL SQ PRN
[2019-02-17] MEDS ORDERED: PROPOFOL 200 MG/20 ML VIAL As Ordered ONE (12:30)
[2019-02-17] MEDS ORDERED: LIDOCAINE 2% INJ 100 MG/5 ML SDV (FOR ANES.) As Ordered ONE (12:30)
[2019-02-17] MEDS ORDERED: ONDANSETRON 4MG/2ML VIAL (J2405) As Ordered ONE (12:31)
[2019-02-17] MEDS ORDERED: MIDAZOLAM INJ 2 MG/2 ML VIAL (J2250) As Ordered ONE (12:31)
[2019-02-17] MEDS ORDERED: dexameTHASONE 4 MG/ML 1ML VIAL (J1100) As Ordered ONE (12:31)
[2019-02-17] MEDS ORDERED: fentaNYL 100 MCG/2 ML INJECTION (J3010) As Ordered ONE (12:31)
[2019-02-17] MEDS ORDERED: LR 1,000 ML IV ONE (13:00)
[2019-02-17] MEDS ORDERED: CIPROFLOXACIN 400 MG in IV 1 EA IV ONE (13:00)
[2019-02-17] MEDS ORDERED: PERCOCET 5MG/325MG TAB As Ordered ONE (14:44)
[2019-02-17 15:15] VITALS: BP 132/67
[2019-02-17] MEDS ORDERED: PERCOCET 5MG/325MG TAB PO PRN (15:15)
[2019-02-17] MEDS ORDERED: LR 1,000 ML IV SCH (15:15)
[2019-02-17] MEDS ORDERED: fentaNYL 100 MCG/2 ML INJECTION (J3010) IV PRN (15:15)
[2019-02-17] MEDS ORDERED: ONDANSETRON 4MG/2ML VIAL (J2405) IV PRN (15:15)
[2019-02-17] MEDS ORDERED: HYDROMORPHONE HCL 0.5 MG/ 0.5 ML SYRINGE (J1170 PER 1) IV PRN (15:15)
--- NOTE | 2019-02-17 19:20 | ROOPDOC ---
[facility] Report Of Operation Report of Operation DATE OF PROCEDURE: 02/17/19 PREPROCEDURE DIAGNOSES: [Right ureteral stent and a severe removed status post ureteroscopy with laser lithotripsy]. POSTPROCEDURE DIAGNOSES: [Same]. PROCEDURE: [Cystoscopy with removal of right ureteral stent]. SURGEON: [Sofya]MD RETURNED ITEM CLERK: [None], ANESTHESIA: [Mac]. ESTIMATED BLOOD LOSS: Approximately [none] mL. COMPLICATIONS: [None]. REMARKS: . PROCEDURE NOTE: [Patient 54-year-old female with history of ureteral calculi and right ureteroscopy with laser lithotripsy and stent placement. She was unable to tolerate stent being removed in the clinic secondary to requiring sedation. Therefore, patient was scheduled for operative]. DESCRIPTION OF PROCEDURE: [Patient was identified itself in the preoperative holding area, consent was signed history and physical was obtained and updated. Patient met with anesthesia and OR team and patient signed an anesthesia consent. Patient is brought to the operating room first timeout was obtained. Patient was then placed in operating room stretcher and given sedation. Patient was prepped and draped in a standard fashion place in lithotomy position. A second timeout was performed. A 21 Belarusian cystoscope was placed through the urethra. Bladder was inspected. No pathology was noted except for a ureteral stent was seen protruding from the right ureteral orifice. Rigid forceps graspers were used to grab the stent and remove it. The bladder was reinspected and no injuries are noted. The bladder was drained, cystoscope was removed. Patient was washed off, taken out of lithotomy position, awakened from sedation anesthesia and taken to recovery room without complications.]. ROD ALCANTAR MD Feb 17, 2019 19:20
== END 2019-02-17 15:39 | disposition home or self-care (01) ==
LOC: M SDC 11:05
PROVIDERS: ATTEND Urology
DX: M54.9 Dorsalgia, unspecified (principal); Z96.0 Presence of urogenital implants; I10 Essential (primary) hypertension; E11.9 Type 2 diabetes mellitus without complications; E03.9 Hypothyroidism, unspecified; F17.210 Nicotine dependence, cigarettes, uncomplicated; N39.41 Urge incontinence; Z88.0 Allergy status to penicillin; Z88.8 Allergy status to other drugs, medicaments and biological substances; Z79.899 Other long term (current) drug therapy; Z87.442 Personal history of urinary calculi
CPT/HCPCS: 52310; J0744; J1100; J2250; J2405; J3010

== ENCOUNTER → 2019-05-05 | Outpatient (CLI) | payer OTHER ==
[~2019-05-05] MED LIST changes: -LIDOCAINE 1% MDV 20ML VIAL SQ PRN
--- NOTE | 2019-05-05 15:18 | REP ---
Clinical: Hydronephrosis. Technique: Real time sanders scale ultrasound examination using curved array transducer. Findings: The right kidney is atrophic and hyperechoic consistent with chronic renal disease and measures 5.1 x 3.1 x 2.5 cm. No hydronephrosis, cystic or mass lesion appreciated. The left ovary is normal in contour, size, echogenicity, and reniform shape measuring 11.0 x 6.0 x 4.9 cm. No hydronephrosis, nephrolithiasis, cystic or mass lesion. Bladder is normal in appearance. Postvoid images are completely emptied. Impression: 1. Atrophic right kidney. 2. Normal left kidney. Electronically Signed by Gigi Gaviria MD 05/05/2019 03:09 P
== END ==
LOC: M RAD 13:35
PROVIDERS: ATTEND Urology
DX: N26.1 Atrophy of kidney (terminal) (principal)

== ENCOUNTER → 2019-05-09 | Outpatient (REF) | payer OTHER ==
[2019-05-09 13:24] LABS: BASO # 0.1 10^3/uL (0.0-0.2); BASO % 0.9 % (0.0-1.0); EOS # 0.1 10^3/uL (0.0-0.5); EOS % 0.8 % (0.0-3.0); HEMATOCRIT 38.5 % (36.0-47.0); HEMOGLOBIN 12.8 g/dl (12.0-15.5); LYMPH # 1.4 10^3/uL (1.5-5.0); LYMPH % 18.8 % (24.0-44.0); MEAN CORPUSCULAR HEMOGLOBIN 30.8 pg (27.0-33.0); MEAN CORPUSCULAR HGB CONC 33.2 g/dl (32.0-36.5); MEAN CORPUSCULAR VOLUME 92.8 fl (80.0-96.0); MONO # 0.5 10^3/uL (0.0-0.8); NEUTROPHILS # 5.4 10^3/uL (1.5-8.5); NEUTROPHILS % 72.8 % (36.0-66.0); PLATELET COUNT, AUTOMATED 245 10^3/uL (150-450); RED BLOOD COUNT 4.15 10^6/uL (4.00-5.40); WHITE BLOOD COUNT 7.4 10^3/uL (4.0-10.0)
[2019-05-09 13:43] LABS: HEMOGLOBIN A1c 9.5 %
[2019-05-09 14:02] LABS: ALBUMIN 4.2 GM/DL (3.2-5.2); BILIRUBIN,TOTAL 0.3 MG/DL (0.2-1.0); CALCIUM LEVEL 9.7 MG/DL (8.5-10.1); CREATININE FOR GFR 1.32 MG/DL (0.55-1.30); FREE T4 0.94 NG/DL (0.76-1.46); GLOMERULAR FILTRATION RATE 44.5 (>51); POTASSIUM SERUM 4.3 MEQ/L (3.5-5.1); PTH INTACT 29.9 PG/ML (18.5-88.0); THYROID STIMULATING HORMONE 13.4 uIU/ML (0.358-3.740); TOTAL 25(OH) VITAMIN D 38.8 NG/ML (30.0-100.0); TOTAL PROTEIN 7.4 GM/DL (6.4-8.2)
== END ==
LOC: M SFHCPLAZ 12:02
PROVIDERS: ATTEND Physician Assistant Medical
DX: I10 Essential (primary) hypertension (principal); E11.9 Type 2 diabetes mellitus without complications; E03.9 Hypothyroidism, unspecified; E55.9 Vitamin D deficiency, unspecified

== ENCOUNTER → 2019-09-21 | Outpatient (REF) | payer OTHER ==
[2019-09-21 17:36] LABS: APPEARANCE, URINE CLEAR (CLEAR); BACTERIA, URINE AUTO NEGATIVE (NEGATIVE); BILIRUBIN, URINE AUTO NEGATIVE (NEGATIVE); BLOOD, URINE BLOOD NEGATIVE (NEGATIVE); COLOR, URINE YELLOW (YELLOW); GLUCOSE, URINE (UA) AUTO NEGATIVE (NEGATIVE); KETONE, URINE AUTO TRACE mg/dL (NEGATIVE); LEUKOCYTE ESTERASE, URINE AUTO NEGATIVE (NEGATIVE); NITRITE, URINE AUTO NEGATIVE (NEGATIVE); PROTEIN, URINE AUTO NEGATIVE (NEGATIVE); RBC, URINE AUTO 0 /HPF (0-3); SPECIFIC GRAVITY URINE AUTO 1.019 (1.002-1.035); SQUAMOUS EPITHELIAL CELL UR AU 1 /HPF (0-6); UROBILINOGEN, URINE AUTO 0.2 mg/dL (0.0-2.0); WBC, URINE AUTO 0 /HPF (0-3)
== END ==
LOC: M SMT 16:42
PROVIDERS: ATTEND Nurse Practitioner Family
DX: R10.9 Unspecified abdominal pain (principal)

== ENCOUNTER → 2019-09-28 | Outpatient (CLI) | payer OTHER ==
[2019-09-28 15:49] LABS: HEMATOCRIT 43.1 % (36.0-47.0); HEMOGLOBIN 14.1 g/dl (12.0-15.5); MEAN CORPUSCULAR HEMOGLOBIN 31.3 pg (27.0-33.0); MEAN CORPUSCULAR HGB CONC 32.7 g/dl (32.0-36.5); MEAN CORPUSCULAR VOLUME 95.8 fl (80.0-96.0); PLATELET COUNT, AUTOMATED 272 10^3/uL (150-450); WHITE BLOOD COUNT 11.4 10^3/uL (4.0-10.0)
[2019-09-28 16:08] LABS: CALCIUM LEVEL 9.6 MG/DL (8.5-10.1); CREATININE FOR GFR 1.23 MG/DL (0.55-1.30); GLOMERULAR FILTRATION RATE 48.3 (>51); POTASSIUM SERUM 4.2 MEQ/L (3.5-5.1)
== END ==
LOC: M PLALAB 14:32
PROVIDERS: ATTEND Nurse Practitioner Family
DX: R10.9 Unspecified abdominal pain (principal)

== ENCOUNTER 2019-10-11 09:02 | Emergency (ER) | payer OTHER ==
[~2019-10-11 09:02] MED LIST changes: +ACETAMINOPHEN 500 MG TAB As Ordered ONE; +ACETAMINOPHEN 500 MG TAB ONE; +BOOSTRIX/ADACEL VACCINE (DIPHTH/PERTUSS/ACELL/TETANUS) 0.5ML SYR As Ordered ONE; +BOOSTRIX/ADACEL VACCINE (DIPHTH/PERTUSS/ACELL/TETANUS) 0.5ML SYR ONE; +MORPHINE 4 MG/ML 1ML VIAL/SYRINGE (J2270) As Ordered ONE; +MORPHINE 4 MG/ML 1ML VIAL/SYRINGE (J2270) ONE
[2019-11-19 10:09] LABS: BASO # 0.1 10^3/uL (0.0-0.2); EOS # 0.2 10^3/uL (0.0-0.5); EOS % 2.2 % (0.0-3.0); HEMATOCRIT 39.3 % (36.0-47.0); HEMOGLOBIN 12.8 g/dl (12.0-15.5); LYMPH # 1.7 10^3/uL (1.5-5.0); LYMPH % 23.3 % (24.0-44.0); MEAN CORPUSCULAR HEMOGLOBIN 30.8 pg (27.0-33.0); MEAN CORPUSCULAR HGB CONC 32.6 g/dl (32.0-36.5); MEAN CORPUSCULAR VOLUME 94.7 fl (80.0-96.0); MONO # 0.5 10^3/uL (0.0-0.8); MONO % 6.5 % (0.0-5.0); NEUTROPHILS # 4.8 10^3/uL (1.5-8.5); PLATELET COUNT, AUTOMATED 230 10^3/uL (150-450); RED BLOOD COUNT 4.15 10^6/uL (4.00-5.40); WHITE BLOOD COUNT 7.3 10^3/uL (4.0-10.0)
[2019-12-24 10:17] LABS: CALCIUM LEVEL 8.9 MG/DL (8.5-10.1); CREATININE FOR GFR 1.15 MG/DL (0.55-1.30); FREE T4 1.21 NG/DL (0.76-1.46); GLOMERULAR FILTRATION RATE 52.2 (>51); POTASSIUM SERUM 4.4 MEQ/L (3.5-5.1); THYROID STIMULATING HORMONE 0.345 uIU/ML (0.358-3.740)
== END 2019-10-11 11:50 | disposition home or self-care (01) ==
LOC: M ED 09:02
DX: S42.212A Unspecified displaced fracture of surgical neck of left humerus, initial encounter for closed fracture (principal); W01.190A Fall on same level from slipping, tripping and stumbling with subsequent striking against furniture, initial encounter; Y92.098 Other place in other non-institutional residence as the place of occurrence of the external cause; E11.9 Type 2 diabetes mellitus without complications; F41.9 Anxiety disorder, unspecified; F32.9 Major depressive disorder, single episode, unspecified; I10 Essential (primary) hypertension; E03.9 Hypothyroidism, unspecified; F17.200 Nicotine dependence, unspecified, uncomplicated; Z79.899 Other long term (current) drug therapy; Z79.84 Long term (current) use of oral hypoglycemic drugs
CPT/HCPCS: 73030; 73060; 80048; 80307; 84439; 84443; 85025; 90471; 90715; 96372; 96374; 99284; J2270

== ENCOUNTER → 2020-01-31 | Outpatient (CLI) | payer OTHER ==
[~2020-01-31] MED LIST changes: -ACETAMINOPHEN 500 MG TAB As Ordered ONE; -ACETAMINOPHEN 500 MG TAB ONE; -BOOSTRIX/ADACEL VACCINE (DIPHTH/PERTUSS/ACELL/TETANUS) 0.5ML SYR As Ordered ONE; -BOOSTRIX/ADACEL VACCINE (DIPHTH/PERTUSS/ACELL/TETANUS) 0.5ML SYR ONE; -MORPHINE 4 MG/ML 1ML VIAL/SYRINGE (J2270) As Ordered ONE; -MORPHINE 4 MG/ML 1ML VIAL/SYRINGE (J2270) ONE
--- NOTE | 2020-01-31 12:49 | REPPI ---
INDICATION: R07.89 LEFT SIDED CHEST WALL PAIN. COMPARISON: Chest 09/06/2018. TECHNIQUE: Four views left ribs performed. A PA view of the chest is performed. FINDINGS: I see no radiographic evidence of left rib fracture or bone lesion. Old healing fracture noted of the proximal left humerus. No infiltrate or pneumothorax is seen in bilaterally and there is no evidence of pleural effusion. The heart is normal in size. The mediastinal silhouette is unremarkable. IMPRESSION: No evidence of left rib fracture. <Electronically signed by Negrito Rojas > 01/31/20 [id number]
== END ==
LOC: M PLALAB 11:57
PROVIDERS: ATTEND Physician Assistant Medical
DX: R07.89 Other chest pain (principal)

== ENCOUNTER → 2020-05-13 | Outpatient (CLI) | payer OTHER ==
[~2020-05-13] MED LIST changes: +LISI10TA22 PO; -LISI10TA4 PO
--- NOTE | 2020-05-13 16:17 | REP ---
INDICATION: F/U FX. 10/11/2019 COMPARISON: None. TECHNIQUE: Internal rotation, external rotation, axillary, and Y-view of the left shoulder FINDINGS: The previously noted displaced transverse fracture through the surgical humeral neck has healed in its previously noted displaced non anatomical position. Underlying osteopenia and degenerative changes through the shoulder noted. IMPRESSION: Healed displaced fracture through the surgical humeral neck. <Electronically signed by Gigi Gaviria > 05/13/20 [id number]
== END ==
LOC: M SOG 03:06
PROVIDERS: ATTEND Orthopaedic Surgery Sports Medicine
DX: M19.012 Primary osteoarthritis, left shoulder (principal); M85.812 Other specified disorders of bone density and structure, left shoulder; Z87.81 Personal history of (healed) traumatic fracture

== ENCOUNTER 2020-06-04 18:31 | Emergency (ER) | payer OTHER ==
[~2020-06-04] VITALS: Ht 167.6 cm; Wt 86.4 kg
[2020-06-04] MEDS ORDERED: PERCOCET 5MG/325MG TAB PO ONE (20:00)
--- NOTE | 2020-06-04 21:29 | REPVR ---
PROCEDURE INFORMATION: Exam: XR Left Shoulder Exam date and time: 06/04/2020 8:36 PM Age: 55 years old Clinical indication: Pain; Shoulder; Left; Additional info: Trauma TECHNIQUE: Imaging protocol: XR Left shoulder. Views: 2 or more views. COMPARISON: CR SHOULDER COMPLETE LEFT 05/13/2020 3:11 PM FINDINGS: Bones/joints: Osteopenia. No radiographic evidence of acute fracture or dislocation. Unchanged chronic deformity of the proximal humerus. Mild glenohumeral and acromioclavicular osteoarthrosis. Soft tissues: Grossly unremarkable. IMPRESSION: No acute radiographic findings. Electronically signed by: Kannan Guzman On 06/04/2020 21:30:09 PM
[2020-06-04] MEDS ORDERED: PERC5TAB12 PO (21:39)
[2020-06-04 22:11] VITALS: BP 153/78
== END 2020-06-04 22:14 | disposition home or self-care (01) ==
LOC: M ED 18:31 → EDBD 18:31 → M ED 22:14
DX: S40.912A Unspecified superficial injury of left shoulder, initial encounter (principal); W18.2XXA Fall in (into) shower or empty bathtub, initial encounter; Y92.009 Unspecified place in unspecified non-institutional (private) residence as the place of occurrence of the external cause; Y93.9 Activity, unspecified; Y99.9 Unspecified external cause status; J45.909 Unspecified asthma, uncomplicated; I10 Essential (primary) hypertension; E11.9 Type 2 diabetes mellitus without complications; N18.9 Chronic kidney disease, unspecified; Z87.81 Personal history of (healed) traumatic fracture; Z88.0 Allergy status to penicillin; Z88.8 Allergy status to other drugs, medicaments and biological substances

== ENCOUNTER → 2020-06-18 | Outpatient (CLI) | payer OTHER ==
[~2020-06-18] MED LIST changes: +PERC5TAB12 PO
[2020-06-18 13:09] LABS: BASO # 0.1 10^3/uL (0.0-0.2); BASO % 0.9 % (0.0-1.0); EOS # 0.1 10^3/uL (0.0-0.5); EOS % 0.7 % (0.0-3.0); HEMATOCRIT 40.7 % (36.0-47.0); HEMOGLOBIN 13.4 g/dl (12.0-15.5); LYMPH # 1.9 10^3/uL (1.5-5.0); LYMPH % 24.2 % (24.0-44.0); MEAN CORPUSCULAR HEMOGLOBIN 31.5 pg (27.0-33.0); MEAN CORPUSCULAR HGB CONC 32.9 g/dl (32.0-36.5); MEAN CORPUSCULAR VOLUME 95.8 fl (80.0-96.0); MONO # 0.5 10^3/uL (0.0-0.8); NEUTROPHILS # 5.4 10^3/uL (1.5-8.5); NEUTROPHILS % 67.5 % (36.0-66.0); PLATELET COUNT, AUTOMATED 255 10^3/uL (150-450); RED BLOOD COUNT 4.25 10^6/uL (4.00-5.40)
[2020-06-18 13:32] LABS: HEMOGLOBIN A1c 8.2 %
[2020-06-18 14:16] LABS: ALBUMIN 4.2 GM/DL (3.2-5.2); ALT/SGPT 40 U/L (12-78); BILIRUBIN,DIRECT < 0.1 MG/DL (0.0-0.2); BILIRUBIN,TOTAL 0.3 MG/DL (0.2-1.0); BLOOD UREA NITROGEN 15 MG/DL (7-18); CARBON DIOXIDE LEVEL 24 MEQ/L (21-32); CHLORIDE LEVEL 102 MEQ/L (98-107); CHOLESTEROL LEVEL 273 MG/DL (<200); GLOMERULAR FILTRATION RATE 49.5 (>51); GLUCOSE, FASTING 198 MG/DL (70-100); HDL CHOLESTEROL 50 MG/DL (>40); NON-HDL-C 223 MG/DL; PHOSPHORUS LEVEL 3.1 MG/DL (2.5-4.9); POTASSIUM SERUM 3.6 MEQ/L (3.5-5.1); SODIUM LEVEL 136 MEQ/L (136-145); TOTAL 25(OH) VITAMIN D 32.6 NG/ML (30.0-100.0); TOTAL PROTEIN 7.6 GM/DL (6.4-8.2); TRIGLYCERIDES LEVEL 447 MG/DL (<150)
== END ==
LOC: M LAB 12:23
PROVIDERS: ATTEND Nurse Practitioner Psychiatric/Mental Health
DX: F31.0 Bipolar disorder, current episode hypomanic (principal)

== ENCOUNTER → 2020-08-20 | Outpatient (REF) | payer OTHER ==
[2020-08-20 18:12] LABS: ALBUMIN 4.2 GM/DL (3.2-5.2); BILIRUBIN,TOTAL 0.5 MG/DL (0.2-1.0); CALCIUM LEVEL 12.1 MG/DL (8.5-10.1); CREATININE FOR GFR 1.1 MG/DL (0.55-1.30); FREE T4 1.19 NG/DL (0.76-1.46); GLOMERULAR FILTRATION RATE 54.7 (>51); POTASSIUM SERUM 4.4 MEQ/L (3.5-5.1); THYROID STIMULATING HORMONE 0.439 uIU/ML (0.358-3.740)
== END ==
LOC: M SFHCPLAZ 15:24
PROVIDERS: ATTEND Physician Assistant Medical
DX: E11.9 Type 2 diabetes mellitus without complications (principal); E03.9 Hypothyroidism, unspecified; E78.00 Pure hypercholesterolemia, unspecified

== ENCOUNTER → 2020-08-30 | Outpatient (REF) | payer OTHER ==
[2020-08-30 18:04] LABS: APPEARANCE, URINE HAZY (CLEAR); BACTERIA, URINE AUTO NEGATIVE (NEGATIVE); BILIRUBIN, URINE AUTO NEGATIVE (NEGATIVE); BLOOD, URINE BLOOD NEGATIVE (NEGATIVE); COLOR, URINE YELLOW (YELLOW); GLUCOSE, URINE (UA) AUTO 2+ mg/dL (NEGATIVE); KETONE, URINE AUTO NEGATIVE (NEGATIVE); LEUKOCYTE ESTERASE, URINE AUTO NEGATIVE (NEGATIVE); MUCUS, URINE SMALL (NEGATIVE); NITRITE, URINE AUTO NEGATIVE (NEGATIVE); PROTEIN, URINE AUTO NEGATIVE (NEGATIVE); RBC, URINE AUTO 0 /HPF (0-3); SPECIFIC GRAVITY URINE AUTO 1.016 (1.002-1.035); SQUAMOUS EPITHELIAL CELL UR AU 1 /HPF (0-6); UROBILINOGEN, URINE AUTO 0.2 mg/dL (0.0-2.0); WBC, URINE AUTO 0 /HPF (0-3)
== END ==
LOC: M SMT 17:06
PROVIDERS: ATTEND Nurse Practitioner Family
DX: N39.41 Urge incontinence (principal)

== ENCOUNTER → 2020-09-11 | Outpatient (CLI) | payer OTHER ==
--- NOTE | 2020-09-11 15:55 | REP ---
INDICATION: RT FLANK PAIN. COMPARISON: Comparison CT study is from February 03, 2019. Comparison sonography is from May 05, 2019.. TECHNIQUE: Urinary tract sonography. FINDINGS: Scanning of the level of the urinary bladder shows no abnormality. The bladder was empty at the time of scanning however.. The right kidney is quite atrophic and renal parenchyma is increased in echogenicity. No hydronephrosis is seen. The left kidney shows no evidence of hydronephrosis. Its renal cortical echogenicity pattern is normal.. There is no evidence of cyst, mass or calculus on either side.. The right kidney measures 5.7 x 2.8 x 3.4 cm. Left renal dimensions are 11.4 x 5.0 x 4.6 cm. IMPRESSION: Echogenic atrophic right kidney unchanged. No evidence hydronephrosis on either side. Normal left kidney.. <Electronically signed by Mark Garcia > 09/11/20 [id number]
== END ==
LOC: M RAD 15:02
PROVIDERS: ATTEND Nurse Practitioner Family
DX: R10.9 Unspecified abdominal pain (principal)

== ENCOUNTER → 2020-12-17 | Outpatient (CLI) | payer OTHER ==
--- NOTE | 2020-12-17 14:07 | REP ---
INDICATION: LT SHOULDER FX. COMPARISON: 06/04/2020 TECHNIQUE: Neutral, internal rotation, external rotation, axillary and Y-views of the left shoulder FINDINGS: Displaced healed fracture of the proximal humerus is unchanged in appearance. Cortical irregularity at the acromioclavicular joint and to the glenoid again identified and unchanged. No new acute findings are appreciated. 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 <Electronically signed by Gigi Gaviria > 12/17/20 [id number]
== END ==
LOC: M SOG 13:45
PROVIDERS: ATTEND Orthopaedic Surgery Sports Medicine
DX: S42.202P Unspecified fracture of upper end of left humerus, subsequent encounter for fracture with malunion (principal)

== ENCOUNTER → 2021-01-24 | Outpatient (REF) | payer OTHER ==
[2021-01-24 17:50] LABS: APPEARANCE, URINE HAZY (CLEAR); BACTERIA, URINE AUTO NEGATIVE (NEGATIVE); BILIRUBIN, URINE AUTO NEGATIVE (NEGATIVE); BLOOD, URINE BLOOD NEGATIVE (NEGATIVE); COLOR, URINE STRAW (YELLOW); GLUCOSE, URINE (UA) AUTO 3+ mg/dL (NEGATIVE); KETONE, URINE AUTO NEGATIVE (NEGATIVE); LEUKOCYTE ESTERASE, URINE AUTO TRACE (NEGATIVE); NITRITE, URINE AUTO NEGATIVE (NEGATIVE); PROTEIN, URINE AUTO NEGATIVE (NEGATIVE); RBC, URINE AUTO 3 /HPF (0-3); SPECIFIC GRAVITY URINE AUTO 1.022 (1.002-1.035); SQUAMOUS EPITHELIAL CELL UR AU 3 /HPF (0-6); UROBILINOGEN, URINE AUTO 0.2 mg/dL (0.0-2.0); WBC, URINE AUTO 2 /HPF (0-3)
== END ==
LOC: M SMT 16:56
PROVIDERS: ATTEND Nurse Practitioner Women's Health
DX: R35.0 Frequency of micturition (principal)

== ENCOUNTER → 2021-05-01 | Outpatient (CLI) | payer OTHER ==
[~2021-05-01] MED LIST changes: +ERGO500029 PO; -LEVO500T3 PO; +LEVO500T4 PO
[2021-05-01 17:36] LABS: BASO # 0.1 10^3/uL (0.0-0.2); BASO % 0.7 % (0.0-1.0); EOS % 0.3 % (0.0-3.0); HEMATOCRIT 40.5 % (36.0-47.0); HEMOGLOBIN 13.8 g/dl (12.0-15.5); LYMPH # 1.7 10^3/uL (1.5-5.0); LYMPH % 18.3 % (24.0-44.0); MEAN CORPUSCULAR HEMOGLOBIN 30.8 pg (27.0-33.0); MEAN CORPUSCULAR HGB CONC 34.1 g/dl (32.0-36.5); MEAN CORPUSCULAR VOLUME 90.4 fl (80.0-96.0); MONO # 0.6 10^3/uL (0.0-0.8); MONO % 6.1 % (2.0-8.0); NEUTROPHILS # 6.7 10^3/uL (1.5-8.5); NEUTROPHILS % 73.9 % (36.0-66.0); PLATELET COUNT, AUTOMATED 235 10^3/uL (150-450); RED BLOOD COUNT 4.48 10^6/uL (4.00-5.40); WHITE BLOOD COUNT 9.1 10^3/uL (4.0-10.0)
[2021-05-01 18:01] LABS: ALBUMIN 4.6 GM/DL (3.2-5.2); BILIRUBIN,TOTAL 0.5 MG/DL (0.2-1.0); CALCIUM LEVEL 10.1 MG/DL (8.5-10.1); CREATININE FOR GFR 1.17 MG/DL (0.55-1.30); GLOMERULAR FILTRATION RATE 50.8 (>51); POTASSIUM SERUM 4.1 MEQ/L (3.5-5.1); TOTAL PROTEIN 8.1 GM/DL (6.4-8.2)
[2021-05-01 18:02] LABS: INR 0.93; PROTHROMBIN TIME 12.9 SECONDS (12.7-14.5)
== END ==
LOC: M PLALAB 15:46
PROVIDERS: ATTEND Family Medicine
DX: E11.9 Type 2 diabetes mellitus without complications (principal)

== ENCOUNTER → 2021-05-01 | Outpatient (CLI) | payer OTHER | LOC: M LABSMTC 12:55 | PROVIDERS: ATTEND Anesthesiology | DX: Z01.818 Encounter for other preprocedural examination (principal); Z11.52 Encounter for screening for COVID-19 ==

== ENCOUNTER → 2021-05-05 | Outpatient (CLI) | payer OTHER | LOC: M SOG 16:23 | PROVIDERS: ATTEND Orthopaedic Surgery Hand Surgery | DX: S82.841A Displaced bimalleolar fracture of right lower leg, initial encounter for closed fracture (principal) ==

== ENCOUNTER → 2021-05-19 | Outpatient (CLI) | payer OTHER | LOC: M SOG 10:23 | PROVIDERS: ATTEND Orthopaedic Surgery Hand Surgery | DX: S82.841D Displaced bimalleolar fracture of right lower leg, subsequent encounter for closed fracture with routine healing (principal); W18.30XD Fall on same level, unspecified, subsequent encounter ==

== ENCOUNTER → 2021-06-05 | Outpatient (CLI) | payer OTHER ==
[2021-06-05 13:36] LABS: HEMOGLOBIN A1c 6.4 %
[2021-06-05 13:39] LABS: TOTAL PROTEIN 7.3 GM/DL (6.4-8.2)
[2021-06-05 13:48] LABS: PTH INTACT 24.5 PG/ML (18.5-88.0); TOTAL 25(OH) VITAMIN D 59.3 NG/ML (30.0-100.0)
== END ==
LOC: M PLALAB 11:32
PROVIDERS: ATTEND Family Medicine
DX: E11.9 Type 2 diabetes mellitus without complications (principal)